=== PATIENT | male | born 1985 | race Caucasian/White ===

== ENCOUNTER 2016-10-19 07:21 | Emergency (ER) | payer SELFPAY ==
[~2016-10-19 07:21] MED LIST: ALBU8.5H3 INH; AZIT250T PO; DICY20TA3 PO; HYDR-79 PO; ONDA4TAB10 PO; PRED20TA PO; SIME80TA14 PO; SULF1TAB24 PO
[2016-10-19] MEDS ORDERED: IV NORMAL SALINE 1,000ML 1,000 ML IV SCH (07:49)
[2016-10-19] MEDS ORDERED: ONDANSETRON PF 4 MG/2 ML VIAL. IV ONE (08:00)
[2016-10-19] MEDS ORDERED: KETOROLAC 30 MG/ML VIAL. IV ONE (08:00)
[2016-10-19 08:13] LABS: BASO % 1 % (0-3); EOS # 0.1 x10^3/uL (0.0-0.7); EOS % 2 % (0-3); HEMATOCRIT 43.6 % (39.0-53.0); HEMOGLOBIN 14.8 g/dL (13.0-17.5); LYMPH # 1.9 x10^3/uL (1.0-4.8); LYMPH % 36 % (24-48); MEAN CORPUSCULAR HEMOGLOBIN 31 pg (25-35); MEAN CORPUSCULAR HGB CONC 34 g/dL (31-37); MEAN CORPUSCULAR VOLUME 92 fL (79-100); MONO # 0.4 x10^3/uL (0.0-1.1); MONO % 8 % (0-9); NEUT # 2.9 x10^3uL (1.8-7.7); NEUT % 54 % (31-73); PLATELET COUNT 211 x10^3/uL (140-400); RED BLOOD COUNT 4.75 x10^6/uL (4.30-5.70); WHITE BLOOD COUNT 5.3 x10^3/uL (4.0-11.0)
[2016-10-19 08:25] LABS: ALBUMIN 4.1 g/dL (3.4-5.0); CALCIUM 9.4 mg/dL (8.5-10.1); CREATININE 1.1 mg/dL (0.7-1.3); GFR 78.6; POTASSIUM 4.5 mmol/L (3.5-5.1); TOTAL BILIRUBIN 0.7 mg/dL (0.2-1.0); TOTAL PROTEIN 8.1 g/dL (6.4-8.2)
--- NOTE | 2016-10-19 09:01 | PHYS DOC ---
General Chief Complaint: ABDOMINAL PAIN Stated Complaint: LEFT UPPER ABD PAIN Time Seen by MD: 07:40 Source: patient Problems: History of Present Illness Initial Comments 30 year old male patient dictated history of chronic pancreatitis states he had severe upper abdominal pain since this morning as a sharp constant pain without radiation. Patient complaining of nausea without vomiting, diarrhea, constipation, urinary symptoms, fever and chills, injury. Patient states he had history of chronic pancreatitis and takes hydrocodone 7.5 mg from pain management clinic. Patient states he had to use his pain medication more than twice a day and planran off the pain medication. Timing/Duration: 1-3 hours Severity: severe Allergies: Coded Allergies: Penicillins (Verified Allergy, Intermediate, 07/01/16) amoxicillin (Verified Allergy, Intermediate, 07/01/16) tramadol (Verified Allergy, Intermediate, 07/01/16) acetaminophen (Verified Allergy, Mild, 07/01/16) Past Medical History Medical History: other Surgical History: noncontributory Review of Systems Constitutional: no symptoms reported EENTM: no symptoms reported Respiratory: no symptoms reported Cardiovascular: no symptoms reported Gastrointestinal: see HPI Genitourinary: no symptoms reported Musculoskeletal: no symptoms reported Skin: no symptoms reported Hematologic/Lymphatic: no symptoms reported Immunological/Allergic: no symptoms reported All Other Systems: Reviewed and Negative Physical Exam General Appearance: WD/WN, mild distress, other (anxious) Eyes: bilateral eye PERRL, bilateral eye normal inspection Ear, Nose, Throat: hearing grossly normal, normal ENT inspection Respiratory: chest non-tender, lungs clear, normal breath sounds Cardiovascular: normal peripheral pulses, regular rate, rhythm, no edema, no gallop Gastrointestinal: normal bowel sounds, non tender, soft, no organomegaly, no pulsatile mass, other (voluntary guarding) Back: normal inspection, no CVA tenderness Extremities: normal range of motion, non-tender Neurologic/Psychiatric: no motor/sensory deficits, alert, normal mood/affect, oriented x 3 Skin: normal color, warm/dry Lymphatic: no adenopathy Orders, Labs, Meds Evaluation of patient in ER showed 30-year-old male patient with history of chronic pancreatitis and use of Freedom complaining of sudden onset of abdominal pain since this morning. Patient had unremarkable physical exam. Patient treated with IV fluid and Zofran and Toradol and stated his pain did not change and rated his pain 10/10 even and he looked comfortable. Patient had 1 dose of Freedom in ER and instructed to follow up with his pain management regarding Rx for Freedom. Departure Departure: Impression: Primary Impression: Chronic abdominal pain Disposition: HOME, SELF-CARE ([id number]) Condition: STABLE Patient Instructions: Abdominal Pain Additional Instructions: Follow-up [facility] primary care physician and pain clinic regarding chronic abdominal pain and long time pain management LUIS BENEDICT MD Oct 19, 2016 09:01
[2016-10-19 09:03] LABS: BACTERIA,URINE 0 /HPF (0-FEW); BILIRUBIN,URINE NEG (NEG); CLARITY,URINE CLEAR; COLOR,URINE YELLOW; GLUCOSE,URINE NEG (NEG); HYALINE CASTS, URINE OCC /HPF; NITRITE,URINE NEG (NEG); SQUAMOUS EPITHELIAL CELL,UR OCC /LPF; UROBILINOGEN,URINE 0.2 mg/dL (0.2 mg/dL); WBC,URINE 0 /HPF (0-4)
[2016-10-19 09:05] LABS: AMPHETAMINE/METHAMPHETAMINE NEG (NEG); BARBITURATES NEG (NEG); BENZODIAZEPINES NEG (NEG); CANNABINOIDS NEG (NEG); COCAINE NEG (NEG); METHADONE NEG (NEG); OPIATES POS (NEG); PHENCYCLIDINE NEG (NEG)
[2016-10-19] MEDS ORDERED: HYDROCODONE/APAP 7.5/325MG TABLET. PO ONE (09:20)
[2016-10-19 09:54] VITALS: BP 137/79
== END 2016-10-19 09:56 | disposition home or self-care (01) ==
LOC: ER 07:21
DX: G89.29 Other chronic pain (principal); R10.10 Upper abdominal pain, unspecified; K86.1 Other chronic pancreatitis; Z88.0 Allergy status to penicillin; Z88.1 Allergy status to other antibiotic agents; Z88.6 Allergy status to analgesic agent
CPT/HCPCS: 36415; 80053; 81001; 83690; 85027; 96361; 96374; 96375; 99284; G0480; G0481; J1885; J2405; J7030

== ENCOUNTER 2016-11-05 20:35 | Emergency (ER) | payer SELFPAY ==
[~2016-11-05] VITALS: Ht 177.8 cm; Wt 79.0 kg
--- NOTE | 2016-11-05 20:40 | ED.ADGEN ---
Past History Past Medical History: IBS, Pancreatitis, Other Past Surgical History: Other Alcohol Use: Sober Drug Use: Marijuana Adult General Chief Complaint Chief Complaint " My pancreatitis is kicking my ass again...".. " They say I partied too much when I was younger..." HPI HPI Patient is a 31 year old male who presents with above hx and complaints of pancreatitis and chronic abdomen pain. Patient was seen previously for the same complaint on October 19, October 03, September 12, and September 03 of this year. Patient follows at [facility]. Patient states he is allergic to all penicillins Tylenol and tramadol. Patient states he cannot take NSAIDs because of stomach upset. Patient denies any intake of alcohol or bad food. Patient denies any trauma. Patient denies any travel. Patient denies any immunosuppression. Patient does have past history of heavy alcohol use. Patient states this is a normal presentation for his pancreatitis exacerbations. Review of Systems Review of Systems Constitutional: Denies fever or chills [] Eyes: Denies change in visual acuity, redness, or eye pain [] HENT: Denies nasal congestion or sore throat [] Respiratory: Denies cough or shortness of breath [] Cardiovascular: No additional information not addressed in HPI [] GI: complaints of epigastric abdominal pain, nausea,. Denies vomiting, bloody stools or diarrhea [] : Denies dysuria or hematuria [] Musculoskeletal: Denies back pain or joint pain [] Integument: Denies rash or skin lesions [] Neurologic: Denies headache, focal weakness or sensory changes [] Endocrine: Denies polyuria or polydipsia [] Family History Family History Noncontributory Current Medications Current Medications Current Medications Medications (Trade) Dose Ordered Sig/Gene Start Time Stop Time Status Last Admin Dose Admin Famotidine (Pepcid) 20 mg 1X ONCE 11/05/16 21:00 11/05/16 21:01 DC 11/05/16 21:52 20 MG Lactated Ringer's (Iv Lactated Ringers) 1,000 ml @ 1,000 mls/hr Q1H 11/05/16 21:00 11/06/16 02:45 DC 11/05/16 21:53 1,000 MLS/HR Magnesium Hydroxide (Milk Of Magnesia) 2,400 mg 1X ONCE 11/05/16 21:00 11/05/16 21:01 DC 11/05/16 21:00 2,400 MG Morphine Sulfate (Morphine 10mg Syringe) 10 mg 1X ONCE 11/05/16 21:00 11/05/16 21:01 DC 11/05/16 21:00 10 MG Ondansetron HCl (Zofran) 8 mg 1X ONCE 11/05/16 21:00 11/05/16 21:01 DC 11/05/16 21:00 8 MG Sucralfate (Carafate) 1 gm 1X ONCE 11/05/16 21:00 11/05/16 21:01 DC 11/05/16 21:00 1 GM Allergies Allergies Allergies Coded Allergies Type Severity Reaction Last Updated Verified Penicillins Allergy Intermediate 07/01/16 Yes amoxicillin Allergy Intermediate 07/01/16 Yes tramadol Allergy Intermediate 07/01/16 Yes acetaminophen Allergy Mild 07/01/16 Yes Physical Exam Physical Exam Constitutional: mild to moderate distress, non-toxic appearance. [] HENT: Normocephalic, atraumatic, bilateral external ears normal, oropharynx moist, no oral exudates, nose normal. [] Eyes: PERRLA, EOMI, conjunctiva normal, no discharge. [] Neck: Normal range of motion, no tenderness, supple, no stridor. [] Cardiovascular:Heart rate regular rhythm, no murmur [] Lungs & Thorax: Bilateral breath sounds equal apex with scattered wheezes on auscultation [] Abdomen: Bowel sounds normal, soft, epigastric tenderness, no masses, no pulsatile masses. Declines rectal exams this time. No true rebound. Skin: Warm, dry, no erythema, no rash. [] Tattoos Back: No tenderness, no CVA tenderness. [] Extremities: No tenderness, no cyanosis, no clubbing, ROM intact, no edema. No psoas or heeltap. Black painted finger nails on Lt. hand. Neurologic: Alert and oriented X 3, normal motor function, normal sensory function, no focal deficits noted. [] Psychologic: Affect normal, judgement normal, mood normal. [] Current Patient Data Vital Signs Vital Signs Date Time Temp Pulse Resp B/P Pulse Ox O2 Delivery O2 Flow Rate FiO2 11/05/16 23:18 82 20 124/53 98 Room Air 11/05/16 20:35 98.2 Lab Results Laboratory Tests Test 11/05/16 21:00 11/05/16 22:00 White Blood Count 6.9x10^3/uL (4.0-11.0) Red Blood Count 4.69x10^6/uL (4.30-5.70) Hemoglobin 14.8g/dL (13.0-17.5) Hematocrit 43.3% (39.0-53.0) Mean Corpuscular Volume 92fL (79-100) Mean Corpuscular Hemoglobin 32pg (25-35) Mean Corpuscular Hemoglobin Concent 34g/dL (31-37) Red Cell Distribution Width 13.3% (11.5-14.5) Platelet Count 240x10^3/uL (140-400) Neutrophils (%) (Auto) 55% (31-73) Lymphocytes (%) (Auto) 35% (24-48) Monocytes (%) (Auto) 8% (0-9) Eosinophils (%) (Auto) 1% (0-3) Basophils (%) (Auto) 1% (0-3) Neutrophils # (Auto) 3.8x10^3uL (1.8-7.7) Lymphocytes # (Auto) 2.4x10^3/uL (1.0-4.8) Monocytes # (Auto) 0.6x10^3/uL (0.0-1.1) Eosinophils # (Auto) 0.1x10^3/uL (0.0-0.7) Basophils # (Auto) 0.1x10^3/uL (0.0-0.2) Prothrombin Time 9.6SEC (9.4-11.4) Prothrombin Time INR 0.9 (0.9-1.1) PTT 27SEC (23-33) Sodium Level 143mmol/L (136-145) Potassium Level 3.8mmol/L (3.5-5.1) Chloride Level 105mmol/L (98-107) Carbon Dioxide Level 27mmol/L (21-32) Anion Gap 11 (6-14) Blood Urea Nitrogen 20mg/dL (8-26) Creatinine 1.3mg/dL (0.7-1.3) Estimated GFR (Cockcroft-Gault) 64.4 Glucose Level 94mg/dL (70-99) Calcium Level 9.0mg/dL (8.5-10.1) Total Bilirubin 0.8mg/dL (0.2-1.0) Direct Bilirubin 0.1mg/dL (0.0-0.2) Aspartate Amino Transferase (AST) 42U/L (15-37) H Alanine Aminotransferase (ALT) 74U/L (16-63) H Alkaline Phosphatase 69U/L (46-116) Troponin I Quantitative < 0.017ng/mL (0-0.055) Total Protein 7.7g/dL (6.4-8.2) Albumin 4.1g/dL (3.4-5.0) Amylase Level 126U/L (25-115) H Lipase 337U/L (73-393) Ethyl Alcohol Level < 10mg/dL (0-10) Urine Collection Type Unknown Urine Color Yellow Urine Clarity Clear Urine pH 7.0 Urine Specific [place] 1.020 Urine Protein Neg (NEG-TRACE) Urine Glucose (UA) Negmg/dL (NEG) Urine Ketones (Stick) Tracemg/dL (NEG) Urine Blood Neg (NEG) Urine Nitrite Neg (NEG) Urine Bilirubin Neg (NEG) Urine Urobilinogen Dipstick 0.2mg/dL (0.2 mg/dL) Urine Leukocyte Esterase Neg (NEG) Urine RBC Occ/HPF (0-2) Urine WBC Occ/HPF (0-4) Urine Squamous Epithelial Cells Occ/LPF Urine Bacteria 0/HPF (0-FEW) Urine Mucus Slight/LPF Urine Opiates Screen Pos (NEG) Urine Methadone Screen Neg (NEG) Urine Barbiturates Neg (NEG) Urine Phencyclidine Screen Neg (NEG) Urine Amphetamine/Methamphetamine Neg (NEG) Urine Benzodiazepines Screen Neg (NEG) Urine Cocaine Screen Neg (NEG) Urine Cannabinoids Screen Neg (NEG) Urine Ethyl Alcohol Neg (NEG) EKG EKG [] Radiology/Procedures Radiology/Procedures My interpretation of acute abdomen shows nonspecific bowel gas pattern , no free air in the diaphragm. [] No acute cardiopulmonary findings Course & Med Decision Making Course & Med Decision Making Pertinent Labs and Imaging studies reviewed. (See chart for details). Patient to remain on a clear fluid diet only. No solids or milk products for the next 48 hours. Patient to take Zantac 150 mg twice day for 30 days. Patient to take Carafate 1 g up to 4 times a day. Patient to follow-up primary care for narcotic renewals. Must follow-up primary care review all labs completed in the emergency department. [] Final Impression Final Impression 1. Abdomen Pain[]- Hx of Chronic Pancreatitis 2. Elevated AST and ALTs 3. Elevated amylase-chronic Problems: Dragon Disclaimer Dragon Disclaimer This electronic medical record was generated, in whole or in part, using a voice recognition dictation system. JUSTINA ZAPATA MD Nov 05, 2016 20:40
[2016-11-05] MEDS ORDERED: MORPHINE SULFATE 10 MG/ML SYRINGE. SQ ONE (21:00)
[2016-11-05] MEDS ORDERED: MAGNESIUM HYDROXIDE 2,400 MG/30 ML ORAL.SUSP. PO ONE (21:00)
[2016-11-05] MEDS ORDERED: FAMOTIDINE 20 MG/2 ML VIAL IVP ONE (21:00)
[2016-11-05] MEDS ORDERED: ONDANSETRON PF 4 MG/2 ML VIAL. IV ONE (21:00)
[2016-11-05] MEDS ORDERED: IV RINGERS SOLUTION,LACTATED 1,000 ML IV SCH (21:00)
[2016-11-05] MEDS ORDERED: SUCRALFATE 1 GM TABLET. PO ONE (21:00)
[2016-11-05 21:27] LABS: BASO # 0.1 x10^3/uL (0.0-0.2); BASO % 1 % (0-3); EOS # 0.1 x10^3/uL (0.0-0.7); EOS % 1 % (0-3); HEMATOCRIT 43.3 % (39.0-53.0); HEMOGLOBIN 14.8 g/dL (13.0-17.5); LYMPH # 2.4 x10^3/uL (1.0-4.8); LYMPH % 35 % (24-48); MEAN CORPUSCULAR HEMOGLOBIN 32 pg (25-35); MEAN CORPUSCULAR HGB CONC 34 g/dL (31-37); MEAN CORPUSCULAR VOLUME 92 fL (79-100); MONO # 0.6 x10^3/uL (0.0-1.1); MONO % 8 % (0-9); NEUT # 3.8 x10^3uL (1.8-7.7); NEUT % 55 % (31-73); PLATELET COUNT 240 x10^3/uL (140-400); RED BLOOD COUNT 4.69 x10^6/uL (4.30-5.70); RED CELL DISTRIBUTION WIDTH 13.3 % (11.5-14.5); WHITE BLOOD COUNT 6.9 x10^3/uL (4.0-11.0)
[2016-11-05 21:39] LABS: ALBUMIN 4.1 g/dL (3.4-5.0); CREATININE 1.3 mg/dL (0.7-1.3); DIRECT BILIRUBIN 0.1 mg/dL (0.0-0.2); GFR 64.4; POTASSIUM 3.8 mmol/L (3.5-5.1); TOTAL BILIRUBIN 0.8 mg/dL (0.2-1.0); TOTAL PROTEIN 7.7 g/dL (6.4-8.2)
[2016-11-05 22:20] LABS: AMPHETAMINE/METHAMPHETAMINE NEG (NEG); BARBITURATES NEG (NEG); BENZODIAZEPINES NEG (NEG); CANNABINOIDS NEG (NEG); COCAINE NEG (NEG); METHADONE NEG (NEG); OPIATES POS (NEG); PHENCYCLIDINE NEG (NEG)
[2016-11-05 22:23] LABS: BACTERIA,URINE 0 /HPF (0-FEW); BILIRUBIN,URINE NEG (NEG); CLARITY,URINE CLEAR; COLOR,URINE YELLOW; GLUCOSE,URINE NEG (NEG); NITRITE,URINE NEG (NEG); RBC,URINE OCC /HPF (0-2); SQUAMOUS EPITHELIAL CELL,UR OCC /LPF; UROBILINOGEN,URINE 0.2 mg/dL (0.2 mg/dL); WBC,URINE OCC /HPF (0-4)
[2016-11-05] MEDS ORDERED: SUCR1ORA2 PO (22:57)
[2016-11-05] MEDS ORDERED: RANI150T6 PO (22:57)
[2016-11-05 23:18] VITALS: BP 124/53
--- NOTE | 2016-11-06 08:21 | RAD ---
Acute abdomen series with chest, 3 views, 11/05/2016: History: Upper abdominal pain with nausea, pancreatitis Gas is present in large and small bowel without significant bowel distention. There are multiple small scattered air-fluid levels. No free air seen in the abdomen. There is no evidence of organomegaly or abnormal abdominal calcification. The heart size is normal. The lungs are clear. There is no evidence of pleural fluid. IMPRESSION: Scattered small air-fluid levels in the GI tract suggests a mild ileus.
== END 2016-11-05 23:33 | disposition home or self-care (01) ==
LOC: ER 20:35
DX: G89.29 Other chronic pain (principal); R10.13 Epigastric pain; K58.9 Irritable bowel syndrome, unspecified; R94.5 Abnormal results of liver function studies; R74.0 Nonspecific elevation of levels of transaminase and lactic acid dehydrogenase [LDH]; R74.8 Abnormal levels of other serum enzymes; F12.10 Cannabis abuse, uncomplicated; Z88.0 Allergy status to penicillin; Z88.6 Allergy status to analgesic agent
CPT/HCPCS: 36415; 74022; 80048; 80076; 80305; 80320; 81001; 82150; 83690; 84484; 85027; 85610; 85730; 96361; 96372; 96374; 96375; 99285; J2270; J2405; J7120; S0028; G0480; G0481

== ENCOUNTER 2016-11-14 19:09 | Emergency (ER) | payer SELFPAY ==
[~2016-11-14] VITALS: Ht 177.8 cm; Wt 77.1 kg
[~2016-11-14 19:09] MED LIST changes: +RANI150T6 PO; +SUCR1ORA2 PO
--- NOTE | 2016-11-14 19:48 | ED.ADGEN ---
Past History Past Medical History: IBS, Pancreatitis, Other Past Surgical History: Other Alcohol Use: None Drug Use: None Adult General Chief Complaint Chief Complaint '.. I having another pancreatitis flare up..." [facility] HPI Patient is a 31 year old male who presents with epigastric pain consistent with his pancreatitis. Pt. has hx of recurrent epigastric and pancreatitis. Pt. denies intake of alcohol for past [address] Harper. Pt. history of alcohol abuse the past. Pt. denies any bad food. Patient denies any travel. Patient denies any trauma. Pain is localized in the epigastric area. Review of Systems Review of Systems Constitutional: Denies fever or chills [] Eyes: Denies change in visual acuity, redness, or eye pain [] HENT: Denies nasal congestion or sore throat [] Respiratory: Denies cough or shortness of breath [] Cardiovascular: No additional information not addressed in HPI [] GI: Complaints of epigastric abdominal pain, nausea, . Denies vomiting, bloody stools or diarrhea [] : Denies dysuria or hematuria [] Musculoskeletal: Denies back pain or joint pain [] Integument: Denies rash or skin lesions [] Neurologic: Denies headache, focal weakness or sensory changes [] Endocrine: Denies polyuria or polydipsia [] Family History Family History Noncontributory Current Medications Current Medications Current Medications Medications (Trade) Dose Ordered Sig/[facility] Start Time Stop Time Status Last Admin Dose Admin Famotidine (Pepcid) 20 mg 1X ONCE 11/14/16 20:15 11/14/16 20:16 DC 11/14/16 20:33 20 MG Magnesium Hydroxide (Milk Of Magnesia) 2,400 mg 1X ONCE 11/14/16 20:15 11/14/16 20:16 DC 11/14/16 20:28 2,400 MG Morphine Sulfate (Morphine 10mg Syringe) 10 mg 1X ONCE 11/14/16 20:15 11/14/16 20:16 DC 11/14/16 20:38 10 MG Ondansetron HCl (Zofran) 8 mg 1X ONCE 11/14/16 20:15 11/14/16 20:16 DC 11/14/16 20:31 8 MG Sucralfate (Carafate) 1 gm 1X ONCE 11/14/16 20:15 11/14/16 20:16 DC 11/14/16 20:29 1 GM See nursing for home meds Allergies Allergies Allergies Coded Allergies Type Severity Reaction Last Updated Verified Penicillins Allergy Intermediate 07/01/16 Yes amoxicillin Allergy Intermediate 07/01/16 Yes tramadol Allergy Intermediate 07/01/16 Yes acetaminophen Allergy Mild 07/01/16 Yes clavulanic acid Allergy Unknown 11/14/16 Yes Physical Exam Physical Exam Constitutional: Well developed, well nourished, no acute distress, non-toxic appearance. [] HENT: Normocephalic, atraumatic, bilateral external ears normal, oropharynx moist, no oral exudates, nose normal. [] Eyes: PERRLA, EOMI, conjunctiva normal, no discharge. [] Neck: Normal range of motion, no tenderness, supple, no stridor. [] Cardiovascular:Heart rate regular rhythm, no murmur [] Lungs & Thorax: Bilateral breath sounds equal at apexes with few scattered wheezes auscultation [] Abdomen: Bowel sounds normal, soft, no gastric tenderness, no masses, no pulsatile masses. [Declines rectal exam at this time. Skin: Warm, dry, no erythema, no rash. [] Back: No tenderness, no CVA tenderness. [] Extremities: No tenderness, no cyanosis, no clubbing, ROM intact, no edema. [] Neurologic: Alert and oriented X 3, normal motor function, normal sensory function, no focal deficits noted. [] Psychologic: Affect anxious, judgement normal, mood normal. [] Current Patient Data Vital Signs Vital Signs Date Time Temp Pulse Resp B/P Pulse Ox O2 Delivery O2 Flow Rate FiO2 11/14/16 21:55 76 12 151/77 97 11/14/16 19:45 98.0 Room Air Lab Results Laboratory Tests Test 11/14/16 20:20 White Blood Count 9.8x10^3/uL (4.0-11.0) Red Blood Count 4.54x10^6/uL (4.30-5.70) Hemoglobin 14.1g/dL (13.0-17.5) Hematocrit 42.4% (39.0-53.0) Mean Corpuscular Volume 93fL (79-100) Mean Corpuscular Hemoglobin 31pg (25-35) Mean Corpuscular Hemoglobin Concent 33g/dL (31-37) Red Cell Distribution Width 13.5% (11.5-14.5) Platelet Count 265x10^3/uL (140-400) Neutrophils (%) (Auto) 56% (31-73) Lymphocytes (%) (Auto) 34% (24-48) Monocytes (%) (Auto) 8% (0-9) Eosinophils (%) (Auto) 1% (0-3) Basophils (%) (Auto) 1% (0-3) Neutrophils # (Auto) 5.5x10^3uL (1.8-7.7) Lymphocytes # (Auto) 3.3x10^3/uL (1.0-4.8) Monocytes # (Auto) 0.8x10^3/uL (0.0-1.1) Eosinophils # (Auto) 0.1x10^3/uL (0.0-0.7) Basophils # (Auto) 0.1x10^3/uL (0.0-0.2) Prothrombin Time 9.7SEC (9.4-11.4) Prothrombin Time INR 0.9 (0.9-1.1) PTT 26SEC (23-33) Urine Collection Type Unknown Urine Color Yellow Urine Clarity Clear Urine pH 7.0 Urine Specific [place] 1.015 Urine Protein Neg (NEG-TRACE) Urine Glucose (UA) Negmg/dL (NEG) Urine Ketones (Stick) Negmg/dL (NEG) Urine Blood Neg (NEG) Urine Nitrite Neg (NEG) Urine Bilirubin Neg (NEG) Urine Urobilinogen Dipstick 0.2mg/dL (0.2 mg/dL) Urine Leukocyte Esterase Neg (NEG) Urine RBC 0/HPF (0-2) Urine WBC Occ/HPF (0-4) Urine Squamous Epithelial Cells Occ/LPF Urine Bacteria 0/HPF (0-FEW) Sodium Level 145mmol/L (136-145) Potassium Level 3.7mmol/L (3.5-5.1) Chloride Level 106mmol/L (98-107) Carbon Dioxide Level 26mmol/L (21-32) Anion Gap 13 (6-14) Blood Urea Nitrogen 18mg/dL (8-26) Creatinine 1.2mg/dL (0.7-1.3) Estimated GFR (Cockcroft-Gault) 70.6 Glucose Level 75mg/dL (70-99) Calcium Level 9.3mg/dL (8.5-10.1) Total Bilirubin 0.6mg/dL (0.2-1.0) Direct Bilirubin 0.1mg/dL (0.0-0.2) Aspartate Amino Transferase (AST) 11U/L (15-37) L Alanine Aminotransferase (ALT) 38U/L (16-63) Alkaline Phosphatase 75U/L (46-116) Creatine Kinase 72U/L (39-308) Creatine Kinase MB (Mass) < 0.5ng/mL (0.0-3.6) Creatine Kinase MB Relative Index 0.7% (0-4) Troponin I Quantitative < 0.017ng/mL (0-0.055) Total Protein 8.1g/dL (6.4-8.2) Albumin 4.2g/dL (3.4-5.0) Lipase 193U/L (73-393) Urine Opiates Screen Neg (NEG) Urine Methadone Screen Neg (NEG) Urine Barbiturates Neg (NEG) Urine Phencyclidine Screen Neg (NEG) Urine Amphetamine/Methamphetamine Neg (NEG) Urine Benzodiazepines Screen Neg (NEG) Urine Cocaine Screen Neg (NEG) Urine Cannabinoids Screen Neg (NEG) Urine Ethyl Alcohol Neg (NEG) EKG EKG [] Radiology/Procedures Radiology/Procedures Interpretation x-ray shows no close. No acute cardiopulmonary findings. No free air under the diaphragm. No specific bowel gas pattern. [] Course & Med Decision Making Course & Med Decision Making Pertinent Labs and Imaging studies reviewed. (See chart for details). A on a clear fluid diet only for 48 hours. No solids. No milk products. Take Zantac and 50 mg twice a day. May take Carafate 1 g 4 times a day. He is to follow-up primary care. Return emergent changes. [] Take Zofran 8 mg up 4 times a day for nausea and vomiting. Pt. to stop smoking. Final Impression Final Impression 1. Abdomen Pain- Pancreatitis[] 2. Chronic Abd. Pain Problems: Dragon Disclaimer Dragon Disclaimer This electronic medical record was generated, in whole or in part, using a voice recognition dictation system. JUSTINA ZAPATA MD Nov 14, 2016 19:48
[2016-11-14] MEDS: MAGNESIUM HYDROXIDE 2,400 MG/30 ML ORAL.SUSP. PO ONE (20:28)
[2016-11-14] MEDS: SUCRALFATE 1 GM TABLET. PO ONE (20:29)
[2016-11-14] MEDS: ONDANSETRON PF 4 MG/2 ML VIAL. IV ONE (20:31)
[2016-11-14] MEDS: FAMOTIDINE 20 MG/2 ML VIAL IVP ONE (20:33)
[2016-11-14 20:35] LABS: BASO # 0.1 x10^3/uL (0.0-0.2); BASO % 1 % (0-3); EOS # 0.1 x10^3/uL (0.0-0.7); EOS % 1 % (0-3); HEMATOCRIT 42.4 % (39.0-53.0); HEMOGLOBIN 14.1 g/dL (13.0-17.5); LYMPH # 3.3 x10^3/uL (1.0-4.8); LYMPH % 34 % (24-48); MEAN CORPUSCULAR HEMOGLOBIN 31 pg (25-35); MEAN CORPUSCULAR HGB CONC 33 g/dL (31-37); MEAN CORPUSCULAR VOLUME 93 fL (79-100); MONO # 0.8 x10^3/uL (0.0-1.1); MONO % 8 % (0-9); NEUT # 5.5 x10^3uL (1.8-7.7); NEUT % 56 % (31-73); PLATELET COUNT 265 x10^3/uL (140-400); RED BLOOD COUNT 4.54 x10^6/uL (4.30-5.70); RED CELL DISTRIBUTION WIDTH 13.5 % (11.5-14.5); WHITE BLOOD COUNT 9.8 x10^3/uL (4.0-11.0)
[2016-11-14] MEDS: MORPHINE SULFATE 10 MG/ML SYRINGE. SQ ONE (20:38)
[2016-11-14 20:40] LABS: BARBITURATES NEG (NEG); BENZODIAZEPINES NEG (NEG); CANNABINOIDS NEG (NEG); COCAINE NEG (NEG); METHADONE NEG (NEG); OPIATES NEG (NEG); PHENCYCLIDINE NEG (NEG)
[2016-11-14 20:41] LABS: AMPHETAMINE/METHAMPHETAMINE NEG (NEG)
[2016-11-14 20:42] LABS: BACTERIA,URINE 0 /HPF (0-FEW); BILIRUBIN,URINE NEG (NEG); CLARITY,URINE CLEAR; COLOR,URINE YELLOW; GLUCOSE,URINE NEG (NEG); NITRITE,URINE NEG (NEG); RBC,URINE 0 /HPF (0-2); SQUAMOUS EPITHELIAL CELL,UR OCC /LPF; UROBILINOGEN,URINE 0.2 mg/dL (0.2 mg/dL); WBC,URINE OCC /HPF (0-4)
[2016-11-14 20:57] LABS: ALBUMIN 4.2 g/dL (3.4-5.0); ALK PHOS 75 U/L (46-116); ALT (SGPT) 38 U/L (16-63); ANION GAP 13 (6-14); AST (SGOT) 11 U/L (15-37); BLOOD UREA NITROGEN 18 mg/dL (8-26); CALCIUM 9.3 mg/dL (8.5-10.1); CARBON DIOXIDE 26 mmol/L (21-32); CHLORIDE 106 mmol/L (98-107); CREATINE KINASE 72 U/L (39-308); CREATININE 1.2 mg/dL (0.7-1.3); DIRECT BILIRUBIN 0.1 mg/dL (0.0-0.2); GFR 70.6; GLUCOSE 75 mg/dL (70-99); LIPASE 193 U/L (73-393); POTASSIUM 3.7 mmol/L (3.5-5.1); SODIUM 145 mmol/L (136-145); TOTAL BILIRUBIN 0.6 mg/dL (0.2-1.0); TOTAL PROTEIN 8.1 g/dL (6.4-8.2)
[2016-11-14] MEDS ORDERED: ONDA8TAB12 PO (21:44)
[2016-11-14] MEDS ORDERED: SUCR1ORA2 PO (21:44)
[2016-11-14 21:55] VITALS: BP 151/77
--- NOTE | 2016-11-15 08:53 | RAD ---
Acute abdomen series with chest, 3 views, 11/14/2016: History: Upper abdominal pain and nausea The abdominal gas pattern is unremarkable. No free air is seen in the abdomen. There is no evidence of organomegaly or abnormal abdominal calcifications. The heart size is normal. The lungs are clear. There is no evidence of pleural fluid. IMPRESSION: No acute abdominal abnormality is detected.
== END 2016-11-14 21:58 | disposition home or self-care (01) ==
LOC: ER 19:15
DX: K85.90 Acute pancreatitis without necrosis or infection, unspecified (principal); G89.29 Other chronic pain; K58.9 Irritable bowel syndrome, unspecified; Z88.1 Allergy status to other antibiotic agents; Z88.6 Allergy status to analgesic agent; Z88.0 Allergy status to penicillin
CPT/HCPCS: 36415; 74022; 80048; 80076; 80305; 81001; 82553; 83690; 84484; 85027; 85610; 85730; 96372; 96374; 96375; 99285; J2270; J2405; S0028; G0481

== ENCOUNTER 2016-12-16 19:42 | Emergency (ER) | payer SELFPAY ==
[~2016-12-16] VITALS: Ht 177.8 cm; Wt 79.0 kg
[~2016-12-16 19:42] MED LIST changes: -ALBU8.5H3 INH; +ALBU8.5H8 INH; +ONDA8TAB12 PO; -SUCR1ORA2 PO; +SUCR1ORA5 PO
[2016-12-16] MEDS ORDERED: fentaNYL PF 100 MCG/2 ML VIAL IV ONE ×2 (20:00→21:30)
[2016-12-16] MEDS ORDERED: IV NORMAL SALINE 1,000ML 1,000 ML IV ONE (20:00)
[2016-12-16] MEDS ORDERED: ONDANSETRON PF 4 MG/2 ML VIAL. IV ONE (20:00)
[2016-12-16 20:27] LABS: BASO # 0.1 x10^3/uL (0.0-0.2); BASO % 1 % (0-3); EOS # 0.1 x10^3/uL (0.0-0.7); EOS % 2 % (0-3); HEMATOCRIT 42.3 % (39.0-53.0); HEMOGLOBIN 14.8 g/dL (13.0-17.5); LYMPH # 3.2 x10^3/uL (1.0-4.8); LYMPH % 46 % (24-48); MEAN CORPUSCULAR HEMOGLOBIN 32 pg (25-35); MEAN CORPUSCULAR HGB CONC 35 g/dL (31-37); MEAN CORPUSCULAR VOLUME 92 fL (79-100); MONO # 0.5 x10^3/uL (0.0-1.1); MONO % 8 % (0-9); NEUT % 43 % (31-73); PLATELET COUNT 254 x10^3/uL (140-400); RED CELL DISTRIBUTION WIDTH 13.2 % (11.5-14.5)
[2016-12-16 20:48] LABS: ALBUMIN/GLOBULIN RATIO 0.9 (1.0-1.7); CALCIUM 8.6 mg/dL (8.5-10.1); CREATININE 1.1 mg/dL (0.7-1.3); GFR 78.1; TOTAL BILIRUBIN 0.7 mg/dL (0.2-1.0); TOTAL PROTEIN 8.5 g/dL (6.4-8.2)
[2016-12-16 21:10] LABS: POTASSIUM 3.9 mmol/L (3.5-5.1)
[2016-12-16 21:49] LABS: BACTERIA,URINE 0 /HPF (0-FEW); BILIRUBIN,URINE NEG (NEG); CLARITY,URINE CLEAR; COLOR,URINE YELLOW; GLUCOSE,URINE NEG (NEG); NITRITE,URINE NEG (NEG); RBC,URINE 0 /HPF (0-2); SQUAMOUS EPITHELIAL CELL,UR OCC /LPF; UROBILINOGEN,URINE 0.2 mg/dL (0.2 mg/dL); WBC,URINE OCC /HPF (0-4)
[2016-12-16 22:21] VITALS: BP 165/89
--- NOTE | 2016-12-16 22:52 | PHYS DOC ---
Past History Past Medical History: IBS, Pancreatitis Past Surgical History: Other Alcohol Use: Sober Drug Use: None Social History Narrative: Home with family Adult General Chief Complaint Chief Complaint: ABDOMINAL PAIN HPI HPI Patient is a 31-year-old gentleman who presents here today complaining of pain in his pancreatitis area. Patient reports he the pancreas in the past and this feels identical to it. Patient reports that morphine usually does not assist him and he is requesting that we give him fentanyl. Patient denies any recent alcohol use. Patient reports that he's been alcohol free for over a year. Patient reports that he with a heavy drinker ever since she was 10 years old and never experienced pancreatitis until much later in his life after he stopped drinking alcohol. Patient denies any fevers shakes chills. Patient has had nausea. Patient has had vomiting. No diarrhea. No cough cold or runny nose. No dysuria frequency or urgency. No blood in his stool or melena. Patient's physical exam is significant for tenderness to palpation his midepigastric area. Patient has normal active bowel sounds. Patient has no rebound or guarding. Patient does not present with any signs or symptoms of be consistent with an acute surgical abdomen. Patient's labs were all within normal limits. Patient had a Normal lipase. Patient blood was called from the lab secondary to it being extremely lipemic. Patient denies any history significant for high cholesterol or hypertriglyceridemia in the past. A triglyceride level was ordered for the patient however we will not be able to obtain results until tomorrow afternoon per the laboratory. While in the ER the patient received fentanyl 50 mg IV with minimal relief. Patient was given another dose of fentanyl 100 mics IV and we will reassess him. The option for admission versus discharge was discussed with the patient is currently requesting to be admitted for further pain management. Assessment and plan #1 abdominal pain: Most likely secondary to pancreatitis. Although a CT scan was initially ordered upon further review patient has had a CT scan approximal 4 days ago which was normal. CT is normal last couple months I feel it would be prudent to avoid any further radiation at this time and I don't think the utility or his management will change with the results. I do not have a high suspicion for an acute surgical abdomen so I feel it be warranted to hold off on aggressive radiation at this time. Patient will be transferred to [facility] for admission for pain management hydration and further evaluation for the cause of his pancreatitis. Review of Systems Review of Systems Constitutional: Denies fever or chills [] Eyes: Denies change in visual acuity, redness, or eye pain [] HENT: Denies nasal congestion or sore throat [] All other review systems are negative except as documented in the history of present illness portion. Current Medications Current Medications Current Medications Medications (Trade) Dose Ordered Sig/Gene Start Time Stop Time Status Last Admin Dose Admin Fentanyl Citrate (Fentanyl 2ml Vial) 100 mcg 1X ONCE 12/16/16 21:30 12/16/16 21:31 DC 12/16/16 21:30 100 MCG Ondansetron HCl (Zofran) 4 mg 1X ONCE 12/16/16 20:00 12/16/16 20:01 DC 12/16/16 20:00 4 MG Sodium Chloride 1,000 ml @ 1,000 mls/hr 1X ONCE 12/16/16 20:00 12/16/16 20:59 DC 12/16/16 20:00 1,000 MLS/HR Allergies Allergies Allergies Coded Allergies Type Severity Reaction Last Updated Verified Penicillins Allergy Intermediate 07/01/16 Yes amoxicillin Allergy Intermediate 07/01/16 Yes tramadol Allergy Intermediate 07/01/16 Yes acetaminophen Allergy Mild 07/01/16 Yes clavulanic acid Allergy Unknown 11/14/16 Yes Physical Exam Physical Exam Constitutional: Well developed, well nourished, no acute distress, non-toxic appearance. [] HENT: Normocephalic, atraumatic, bilateral external ears normal, oropharynx moist, no oral exudates, nose normal. [] Eyes: PERRLA, EOMI, conjunctiva normal, no discharge. [] Neck: Normal range of motion, no tenderness, supple, no stridor. [] Cardiovascular:Heart rate regular rhythm, no murmur [] Lungs & Thorax: Bilateral breath sounds clear to auscultation [] Abdomen: See above. Skin: Warm, dry, no erythema, no rash. [] Back: No tenderness, no CVA tenderness. [] Extremities: No tenderness, no cyanosis, no clubbing, ROM intact, no edema. [] Neurologic: Alert and oriented X 3, normal motor function, normal sensory function, no focal deficits noted. [] Psychologic: Affect normal, judgement normal, mood normal. [] Current Patient Data Vital Signs Vital Signs Date Time Temp Pulse Resp B/P (MAP) Pulse Ox O2 Delivery O2 Flow Rate FiO2 12/16/16 19:53 98.3 72 147/87 (107) 99 12/16/16 19:53 14 Room Air Lab Results Laboratory Tests Test 12/16/16 20:00 12/16/16 21:10 White Blood Count 7.0 x10^3/uL (4.0-11.0) Red Blood Count 4.60 x10^6/uL (4.30-5.70) Hemoglobin 14.8 g/dL (13.0-17.5) Hematocrit 42.3 % (39.0-53.0) Mean Corpuscular Volume 92 fL (79-100) Mean Corpuscular Hemoglobin 32 pg (25-35) Mean Corpuscular Hemoglobin Concent 35 g/dL (31-37) Red Cell Distribution Width 13.2 % (11.5-14.5) Platelet Count 254 x10^3/uL (140-400) Neutrophils (%) (Auto) 43 % (31-73) Lymphocytes (%) (Auto) 46 % (24-48) Monocytes (%) (Auto) 8 % (0-9) Eosinophils (%) (Auto) 2 % (0-3) Basophils (%) (Auto) 1 % (0-3) Neutrophils # (Auto) 3.0 x10^3uL (1.8-7.7) Lymphocytes # (Auto) 3.2 x10^3/uL (1.0-4.8) Monocytes # (Auto) 0.5 x10^3/uL (0.0-1.1) Eosinophils # (Auto) 0.1 x10^3/uL (0.0-0.7) Basophils # (Auto) 0.1 x10^3/uL (0.0-0.2) Sodium Level 141 mmol/L (136-145) Potassium Level 3.9 mmol/L (3.5-5.1) Chloride Level 104 mmol/L (98-107) Carbon Dioxide Level 27 mmol/L (21-32) Anion Gap 10 (6-14) Blood Urea Nitrogen 14 mg/dL (8-26) Creatinine 1.1 mg/dL (0.7-1.3) Estimated GFR (Cockcroft-Gault) 78.1 BUN/Creatinine Ratio 13 (6-20) Glucose Level 102 mg/dL (70-99) H Calcium Level 8.6 mg/dL (8.5-10.1) Total Bilirubin 0.7 mg/dL (0.2-1.0) Aspartate Amino Transferase (AST) 20 U/L (15-37) Alanine Aminotransferase (ALT) 26 U/L (16-63) Alkaline Phosphatase 71 U/L (46-116) Total Protein 8.5 g/dL (6.4-8.2) H Albumin 4.0 g/dL (3.4-5.0) Albumin/Globulin Ratio 0.9 (1.0-1.7) L Lipase 357 U/L (73-393) Urine Collection Type Unknown Urine Color Yellow Urine Clarity Clear Urine pH 7.0 Urine Specific [place] 1.015 Urine Protein Neg (NEG-TRACE) Urine Glucose (UA) Neg mg/dL (NEG) Urine Ketones (Stick) Neg mg/dL (NEG) Urine Blood Neg (NEG) Urine Nitrite Neg (NEG) Urine Bilirubin Neg (NEG) Urine Urobilinogen Dipstick 0.2 mg/dL (0.2 mg/dL) Urine Leukocyte Esterase Neg (NEG) Urine RBC 0 /HPF (0-2) Urine WBC Occ /HPF (0-4) Urine Squamous Epithelial Cells Occ /LPF Urine Bacteria 0 /HPF (0-FEW) Urine Mucus Slight /LPF EKG EKG [] Radiology/Procedures Radiology/Procedures [] Course & Med Decision Making Course & Med Decision Making Pertinent Labs and Imaging studies reviewed. (See chart for details) [] Dragon Disclaimer Dragon Disclaimer This chart was dictated in whole or in part using Voice Recognition software in a busy, high-work load, and often noisy Emergency Department environment. It may contain unintended and wholly unrecognized errors or omissions. Departure Departure: Impression: Primary Impression: Pancreatitis Additional Impression: Hyperlipidemia Disposition: OTHER (transferred to [facility] for admission under Dr. Pacheco) Admitting Physician: Other (Dr. Pacheco) Condition: IMPROVED Referrals: SHARMIN JOSHUA MD (PCP) Problem Qualifiers Primary Impression: Pancreatitis Chronicity: acute Pancreatitis type: unspecified pancreatitis type Acute pancreatitis complication: unspecified Qualified Codes: K85.90 - Acute pancreatitis without necrosis or infection, unspecified KRISSY MRECER MD December 16, 2016 22:52
[2016-12-16] MEDS ORDERED: KETOROLAC 30 MG/ML VIAL. ONE (23:59)
[2016-12-16] MEDS ORDERED: HYDROmorphone PF 1 MG/ML DISP.SYRIN ONE (23:59)
[2016-12-17] MEDS ORDERED: HYDROmorphone PF 1 MG/ML DISP.SYRIN IV ONE (00:30)
[2016-12-17] MEDS ORDERED: ONDANSETRON PF 4 MG/2 ML VIAL. IV ONE (00:30)
[2016-12-17] MEDS ORDERED: KETOROLAC 30 MG/ML VIAL. IV ONE (00:30)
== END 2016-12-17 00:21 | disposition short-term general hospital (02) ==
LOC: ER 19:42
DX: K85.90 Acute pancreatitis without necrosis or infection, unspecified (principal); E78.5 Hyperlipidemia, unspecified; K58.9 Irritable bowel syndrome, unspecified; Z88.0 Allergy status to penicillin; Z88.1 Allergy status to other antibiotic agents; Z88.6 Allergy status to analgesic agent
CPT/HCPCS: 36415; 80053; 81001; 83690; 84478; 85027; 96361; 96374; 96375; 96376; 99285; J1170; J1885; J2405; J3010; J7030

== ENCOUNTER 2017-01-10 11:21 | Inpatient (IN) | payer SELFPAY ==
[~2017-01-10] VITALS: Ht 177.8 cm; Wt 77.4 kg
[2017-01-10] MEDS ORDERED: IV NORMAL SALINE 1,000ML 1,000 ML IV SCH ×2 (11:42→12:38)
[2017-01-10] MEDS ORDERED: fentaNYL PF 100 MCG/2 ML VIAL ONE (11:56)
[2017-01-10] MEDS ORDERED: IV NORMAL SALINE 1,000ML 1,000 ML ONE (11:56)
[2017-01-10] MEDS ORDERED: IOHEXOL 300 MG/ML 75 ML VIAL. IV ONE ×2 (12:00)
[2017-01-10 12:05] LABS: BASO # 0.1 x10^3/uL (0.0-0.2); BASO % 1 % (0-3); EOS # 0.3 x10^3/uL (0.0-0.7); EOS % 4 % (0-3); HEMATOCRIT 40.6 % (39.0-53.0); HEMOGLOBIN 14.2 g/dL (13.0-17.5); LYMPH # 3.8 x10^3/uL (1.0-4.8); LYMPH % 43 % (24-48); MEAN CORPUSCULAR HEMOGLOBIN 32 pg (25-35); MEAN CORPUSCULAR HGB CONC 35 g/dL (31-37); MEAN CORPUSCULAR VOLUME 91 fL (79-100); MONO # 0.6 x10^3/uL (0.0-1.1); MONO % 7 % (0-9); NEUT % 45 % (31-73); PLATELET COUNT 248 x10^3/uL (140-400); RED BLOOD COUNT 4.49 x10^6/uL (4.30-5.70); RED CELL DISTRIBUTION WIDTH 12.5 % (11.5-14.5); WHITE BLOOD COUNT 8.7 x10^3/uL (4.0-11.0)
[2017-01-10] MEDS ORDERED: ONDANSETRON PF 4 MG/2 ML VIAL. IV ONE (12:15)
[2017-01-10] MEDS ORDERED: fentaNYL PF 100 MCG/2 ML VIAL IV ONE ×2 (12:15→13:00)
[2017-01-10 12:16] LABS: ALBUMIN 4.1 g/dL (3.4-5.0); ALBUMIN/GLOBULIN RATIO 1.1 (1.0-1.7); CALCIUM 8.9 mg/dL (8.5-10.1); CREATININE 1.2 mg/dL (0.7-1.3); DIRECT BILIRUBIN 0.1 mg/dL (0.0-0.2); GFR 70.6; POTASSIUM 3.9 mmol/L (3.5-5.1); TOTAL BILIRUBIN 0.4 mg/dL (0.2-1.0); TOTAL PROTEIN 7.9 g/dL (6.4-8.2)
--- NOTE | 2017-01-10 12:16 | PHYS DOC ---
Past History Past Medical History: IBS, Pancreatitis Past Surgical History: Other Alcohol Use: None Drug Use: None Adult General Chief Complaint Chief Complaint: ABDOMINAL PAIN HPI HPI This 31-year-old gentleman presents with suprapubic abdominal pain. He states that at 2:30 AM while urinating he developed pain in the suprapubic area that was severe. He denies hematuria and denies dysuria. He states the pain is in the suprapubic area and it still hurts a little there but he has pain in his epigastrium as well. He states that he does have a history of pancreatitis. He denies painful bowel movements denies fever or chills has had some nausea without vomiting denies diarrhea. Review of Systems Review of Systems Constitutional: Denies fever or chills [] Eyes: Denies change in visual acuity, redness, or eye pain [] HENT: Denies nasal congestion or sore throat [] Respiratory: Denies cough or shortness of breath [] Cardiovascular: No additional information not addressed in HPI [] GI: Denies vomiting, bloody stools or diarrhea [] : Denies dysuria or hematuria [] Musculoskeletal: Denies back pain or joint pain [] Integument: Denies rash or skin lesions [] Neurologic: Denies headache, focal weakness or sensory changes [] Endocrine: Denies polyuria or polydipsia [] Current Medications Current Medications Current Medications Medications (Trade) Dose Ordered Sig/Gene Start Time Stop Time Status Last Admin Dose Admin Fentanyl Citrate (Fentanyl 2ml Vial) 100 mcg STK-MED ONCE 01/10/17 11:56 01/10/17 11:57 DC Iohexol (Omnipaque 300 Mg/ml) 75 ml 1X ONCE 01/10/17 12:00 01/10/17 12:01 DC Ondansetron HCl (Zofran) 4 mg 1X ONCE 01/10/17 12:15 01/10/17 12:16 01/10/17 12:01 4 MG Sodium Chloride 1,000 ml @ As Directed STK-MED ONCE 01/10/17 11:56 01/10/17 11:57 DC Allergies Allergies Allergies Coded Allergies Type Severity Reaction Last Updated Verified Penicillins Allergy Intermediate 07/01/16 Yes amoxicillin Allergy Intermediate 07/01/16 Yes tramadol Allergy Intermediate 07/01/16 Yes acetaminophen Allergy Mild 07/01/16 Yes clavulanic acid Allergy Unknown 4/11/17 Yes Physical Exam Physical Exam Constitutional: Well developed, well nourished, no acute distress, non-toxic appearance. [] HENT: Normocephalic, atraumatic, bilateral external ears normal, oropharynx moist, no oral exudates, nose normal. [] Eyes: PERRLA, EOMI, conjunctiva normal, no discharge. [] Neck: Normal range of motion, no tenderness, supple, no stridor. [] Cardiovascular:Heart rate regular rhythm, no murmur [] Lungs & Thorax: Bilateral breath sounds clear to auscultation [] Abdomen: Bowel sounds normal, soft, no masses, no pulsatile masses. He has tenderness in the epigastrium and slight tenderness suprapubic. No masses no rebound no guarding. Rectal examination reveals he is tender over his prostate Skin: Warm, dry, no erythema, no rash. [] Back: No tenderness, no CVA tenderness. [] Extremities: No tenderness, no cyanosis, no clubbing, ROM intact, no edema. [] Neurologic: Alert and oriented X 3, normal motor function, normal sensory function, no focal deficits noted. [] Psychologic: Affect normal, judgement normal, mood normal. [] Current Patient Data Vital Signs Vital Signs Date Time Temp Pulse Resp B/P (MAP) Pulse Ox O2 Delivery O2 Flow Rate FiO2 01/10/17 12:01 Room Air 01/10/17 11:35 98.1 94 20 98 Lab Results Laboratory Tests Test 01/10/17 11:53 White Blood Count 8.7 x10^3/uL (4.0-11.0) Red Blood Count 4.49 x10^6/uL (4.30-5.70) Hemoglobin 14.2 g/dL (13.0-17.5) Hematocrit 40.6 % (39.0-53.0) Mean Corpuscular Volume 91 fL (79-100) Mean Corpuscular Hemoglobin 32 pg (25-35) Mean Corpuscular Hemoglobin Concent 35 g/dL (31-37) Red Cell Distribution Width 12.5 % (11.5-14.5) Platelet Count 248 x10^3/uL (140-400) Neutrophils (%) (Auto) 45 % (31-73) Lymphocytes (%) (Auto) 43 % (24-48) Monocytes (%) (Auto) 7 % (0-9) Eosinophils (%) (Auto) 4 % (0-3) H Basophils (%) (Auto) 1 % (0-3) Neutrophils # (Auto) 4.0 x10^3uL (1.8-7.7) Lymphocytes # (Auto) 3.8 x10^3/uL (1.0-4.8) Monocytes # (Auto) 0.6 x10^3/uL (0.0-1.1) Eosinophils # (Auto) 0.3 x10^3/uL (0.0-0.7) Basophils # (Auto) 0.1 x10^3/uL (0.0-0.2) EKG EKG [] Radiology/Procedures Radiology/Procedures [] Impressions: Acute Pancreatitis Course & Med Decision Making Course & Med Decision Making Evaluation of the patient's laboratory data reveals CBC is essentially unremarkable Lipase is elevated at 1143 CT scan of the abdomen and pelvis is unremarkable Because of the patient's persistent pain requiring IV narcotics was decided to admit the patient for further treatment and evaluation [] Dragon Disclaimer Dragon Disclaimer This chart was dictated in whole or in part using Voice Recognition software in a busy, high-work load, and often noisy Emergency Department environment. It may contain unintended and wholly unrecognized errors or omissions. Departure Departure: Referrals: SHARMIN JOSHUA MD (PCP) EDE DANIELS MD Jan 10, 2017 12:16
--- NOTE | 2017-01-10 12:29 | RAD ---
Indication nausea. Pelvic pain. Pressure between the testicle and anus. Axial images through the abdomen and pelvis were obtained. 75 cc of Omnipaque 300 was administered intravenously. No oral contrast was administered. Note is made of a prior examination of the abdomen and pelvis September 03, 2016. The lung bases are clear. The liver and spleen appear unremarkable. The gallbladder appears grossly normal. No pancreatic abnormality is seen. There is a small left renal calculus. Some slight cortical scarring involving the kidneys is seen. The kidneys are unchanged relative to the previous exam. An acute finding in the abdomen is not seen. The appendix is seen in the right lower quadrant and appears normal. A focal mass inflammatory process or acute finding in the pelvis is not seen. IMPRESSION: No acute finding seen in the abdomen or pelvis.
[2017-01-10] MEDS ORDERED: ONDANSETRON PF 4 MG/2 ML VIAL. IV PRN ×2 (12:45→13:45)
[2017-01-10 12:49] LABS: COLOR,URINE YELLOW
[2017-01-10 12:50] LABS: BACTERIA,URINE 0 /HPF (0-FEW); BILIRUBIN,URINE NEG (NEG); CLARITY,URINE CLEAR; GLUCOSE,URINE NEG (NEG); NITRITE,URINE NEG (NEG); RBC,URINE 0 /HPF (0-2); UROBILINOGEN,URINE 0.2 mg/dL (0.2 mg/dL); WBC,URINE 0 /HPF (0-4)
[2017-01-10] MEDS ORDERED: METOCLOPRAMIDE HCL 10 MG/2 ML VIAL. IV PRN (14:00)
[2017-01-10 14:54] VITALS: BP 160/92
[2017-01-10] MEDS: NICOTINE 21MG PATCH. TD SCH (15:03)
[2017-01-10] MEDS: IV NORMAL SALINE 1,000ML 1,000 ML IV SCH (15:04)
[2017-01-10] MEDS: fentaNYL PF 100 MCG/2 ML VIAL IV PRN ×4 (15:04→22:03)
[2017-01-10] MEDS: oxyCODONE IR 5 MG TABLET PO PRN (18:20)
[2017-01-10 19:32] VITALS: BP 155/87
--- NOTE | 2017-01-10 20:10 | ACF ---
Admission Criteria Forms ABDOMINAL PAIN Clinical Indications for Admission to Inpatient Care (Place 'X' for any and all applicable criteria): Admission is indicated for ANY ONE of the following(1)(2)(3)(4)(5): [X]I. Inpatient admission required rather than observation care (Also use Abdominal Pain: Observation Care, as appropriate) because of ANY ONE of the following: [ ]a) Severe pain requiring acute inpatient management [X]b) Identification of etiology/finding that requires inpatient care (eg, aortic dissection, free air) [ ]c) Absent bowel sounds with complete ileus(6) [ ]d) Suspected toxic megacolon [ ]e) Severe electrolyte abnormalities requiring inpatient care [ ]f) High fever or infection requiring inpatient admission as indicated by ANY ONE of following(7)(8): [ ] i) Appropriate outpatient or observational care antimicrobial treatment unavailable, not effective, or not feasible [ ] ii) Documented bacteremia [ ] iii) Temperature > 104.9 degrees F (oral) [ ] iv) T >103.1 F (oral) or < 96.8 F(rectal) that does not respond to all emergency treatment measures [ ]g) Signs of intestinal obstruction [B] [ ]h) Hemodynamic instability [ ]i) IV fluid to replace significant ongoing losses (greater than 3 L/m2 per day) (12)(13) [ ]j) Percutaneous or open drainage (eg, abscess, biliary tract ) procedures [ ]k) Parenteral nutrition regimen that must be implemented on inpatient basis [ ]l) Other condition,treatment or monitoring requiring inpatient admission. [ ]II. Peritoneal signs present [ ]III. Surgery needed that cannot be performed on an ambulatory basis. [ ]IV. Evaluation requires patient to not eat or drink for extended period ( eg, more than 24 hours). [ ]V. Contraindications and/or Inappropriate clinical situations for Observational Care in patients with abdominal pain, when ANY ONE of the following is required: [ ]a) Thorough evaluation is required to prevent catastrophic events due to delays in diagnosing (e.g.Mesenteric ischemia) 1,3 [ ]b) Patient with severe pathology or with chronic symptoms unlikely to improve in the ED stay (3) [ ]. General contraindications and/or Inappropriate clinical situations for Observational Care in patients with abdominal pain, when ANY ONE of the following is required: [ ]a) Prediction of prolongation of LOS based on ANY ONE of the following may be considered as a contraindication for observational care 2, 3, 4, 5, 6, 7, 8, 9, 10, 11 [ ]i) Age > 65 yrs. [ ]ii) Patient arriving by ambulance [ ]iii) Patient with high acuity [ ]iv) Patient requiring vital sign monitoring [ ]v) Patient on IV medication [ ]b) Systolic blood pressures 180mmHg 3,12 [ ]c) Patient with altered mental status including delirium and other alteration of consciousness, (3) [ ]d) Patient whose discharge disposition will be to a long-term home or rehabilitation home should not be managed in Emergency Department Observation Unit. CMS rule requires 3 days hospital stay before such placement.3,13 [ ]e) Patient with failure to thrive due to broad array of etiologies 3,16,17 [ ]f) Inability to ambulate 3,14 Extended stay beyond goal length of stay may be needed for(2)(3): [ ]a) Persistent abdominal pain with suspected intra-abdominal process [ ]b) Diagnosed condition requiring continued stay (e.g., pancreatitis, complicated diverticulitis) [ ]c) Surgery (e.g., colectomy) The original [facility] content created by [employer] has been revised. The portions of the content which have been revised are identified through the use of italic text or in bold, and [facility] has neither reviewed nor approved the modified material.All other unmodified content is copyright [employer]. Please see references footnoted in the original [facility] edition 2016 Admission Criteria Met?: Yes VERONICA BEY Jan 10, 2017 20:10
--- NOTE | 2017-01-10 20:36 | HP ---
ADMIT DATE: 01/10/2017 HISTORY OF PRESENT ILLNESS: The patient is a 31-year-old male patient who came to the Emergency Room complaining of pain in the suprapubic area and also that started at 2:30 early in the morning. While urinating he developed pain also in that area and also developed pain in the epigastrium as well. He stated that he does have a history of pancreatitis. He does have some nausea, but no vomiting. Denied any diarrhea. He was evaluated in the Emergency Room, was found to have markedly elevated serum amylase of 1143, blood glucose was slightly elevated; however, no leukocytosis. Urinalysis was essentially unremarkable. CT scan of the abdomen and pelvis showed no evidence of any acute finding. In particular, no pancreatic abnormalities detected. The gallbladder appears grossly normal and was admitted for acute pancreatitis transpired that he was diagnosed for the first time in 06/15/2016 and has been admitted to the hospital almost every month and sometime is more than once for relapsing for [id number] pancreatitis. He quit drinking going on 05/03/2016 and first episode of pancreatitis started on 06/15/2016. He used to be a heavy drinker and he quit drinking about 251 days. PAST MEDICAL HISTORY: Significant for irritable bowel syndrome, nephrolithiasis. He stated that he passed the stone spontaneously in 03/2016. 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 He has childhood asthma that he is out grown. 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 ALLERGIES: He is allergic to PENICILLIN, TYLENOL, AMOXICILLIN, and CLAVULANIC ACID as well as TRAMADOL and MORPHINE. MEDICATIONS: He is currently on following medications: He is on albuterol sulfate 2 puffs every 4 hours, azithromycin 250 mg once a day, dicyclomine 20 mg every 4 hours, hydrocodone/ibuprofen 7.5/200 every 6 hours, ondansetron 4 mg every 6 hours, prednisone 20 mg p.o. b.i.d., ranitidine 150 mg twice a day, simethicone 80 mg 3 times a day, sucralfate 1 gram 4 times a day and he also was on sulfamethoxazole, trimethoprim for 10 days. FAMILY HISTORY: He has 1 older brother who is 33 years old, has rheumatoid arthritis. His sister is 26 years old and healthy. His father is still alive at age of 57 he has severe deforming advanced rheumatoid arthritis. Mother is 55 and has multiple skin cancers. SOCIAL HISTORY: He is engaged has continued to smoke 6-10 cigarettes per day. He stated that he is sober for about 251 days. He used to smoke marijuana, but quit smoking marijuana when he quit drinking. He currently works as a cook for [employer] 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 Denied any earache, tinnitus, or sensorineural deafness. Denied any nosebleeds, stuffy nose or postnasal drip. Denied any sore throat, sore tongue, toothache, hoarseness of voice or difficulty swallowing. Should he has constant nausea, but no vomiting, no diarrhea or constipation. Denied any hematemesis, melena or hematochezia. Denied any dysuria, frequency or hematuria. Denied any chest pain, shortness of breath, orthopnea, or paroxysmal nocturnal dyspnea. PHYSICAL EXAMINATION: GENERAL: When I examined him, he looked well and was clearly in no apparent respiratory distress, pale, but no jaundice, cyanosis, or thyromegaly. No jugular venous distention. No limb edema. VITAL SIGNS: His heart rate was 70, blood pressure 160/92, temperature was 97.6, respiratory rate 20, and oxygen saturation was 98%. HEAD, EYES, EARS, NOSE, AND THROAT: Showed normocephalic, atraumatic. NECK: Supple. HEART: Showed normal first and second heart sounds with no gallop, rub or murmur. CHEST: Clear to auscultation. No crepitation or rhonchi. ABDOMEN: Mild distended, soft, nontender. No guarding or rigidity. No organomegaly. Hernial orifices intact. Bowel sounds normal. NEUROLOGIC: He was awake, alert, responding appropriately. Cranial nerves intact. EXTREMITIES: He moves extremities without difficulty. He ambulates without assistance or assistive devices. LABORATORY DATA: Showed a white cell count of 8700, hemoglobin 14, hematocrit 40, MCV 91, and platelet count 248,000. Serum sodium was 139, potassium 3.9, chloride 104, bicarbonate 27, anion gap of 8, BUN 11, creatinine 1.2, estimated GFR was 70 mL per minute. His glucose 146, calcium was 8.9. Total bilirubin, AST, ALT, alkaline phosphatase were normal. His total protein was 7.9, albumin 4.1 and his serum lipase was 1143. Urinalysis was essentially unremarkable. CT scan of the abdomen and pelvis showed that the lung bases are clear. The liver and spleen appears unremarkable. The gallbladder appears grossly normal. ____ abnormality is seen. There is small left renal calculus some slight cortical scarring involving the kidneys is seen. The kidneys are unchanged relative to previous exam. An acute finding in the abdomen has not seen. His appendix is seen in the right lower quadrant and if there is appears normal, a focal mass inflammatory process or acute finding ____ not seen. ASSESSMENT AND PLAN: The patient was admitted with acute pancreatitis transpired that he has multiple relapses approaches admitted multiple times to [facility]. His serum triglycerides were slightly high, but not really that ended 300 probably not in 1000. His gallbladder is normal. His calcium is normal. Alcohol remains most likely suspect. I plan to start him on a clear liquid diet, continue with IV fluid, and IV pain medication. We will repeat his lab work tomorrow and decide on further management accordingly. AZIZA GOEL MD DR: BEV/mika JOB#: [id number] / [id number]
[2017-01-11] MEDS: oxyCODONE IR 5 MG TABLET PO PRN ×2 (00:07→10:06)
[2017-01-11] MEDS: IV NORMAL SALINE 1,000ML 1,000 ML IV SCH ×2 (00:08→10:06)
[2017-01-11 00:11] VITALS: BP 150/91
[2017-01-11] MEDS: fentaNYL PF 100 MCG/2 ML VIAL IV PRN ×5 (00:14→12:06)
[2017-01-11 05:40] VITALS: BP 143/89
[2017-01-11 06:31] LABS: HEMATOCRIT 36.2 % (39.0-53.0); HEMOGLOBIN 12.5 g/dL (13.0-17.5); RED BLOOD COUNT 3.99 x10^6/uL (4.30-5.70); RED CELL DISTRIBUTION WIDTH 12.6 % (11.5-14.5); WHITE BLOOD COUNT 6.3 x10^3/uL (4.0-11.0)
[2017-01-11 06:47] LABS: ALBUMIN 3.4 g/dL (3.4-5.0); ALBUMIN/GLOBULIN RATIO 1.1 (1.0-1.7); CALCIUM 8.3 mg/dL (8.5-10.1); GFR 87.2; POTASSIUM 4.1 mmol/L (3.5-5.1); TOTAL BILIRUBIN 0.9 mg/dL (0.2-1.0); TOTAL PROTEIN 6.6 g/dL (6.4-8.2)
[2017-01-11] MEDS: NICOTINE 21MG PATCH. TD SCH (08:51)
[2017-01-11 11:42] VITALS: BP 162/76
--- NOTE | 2017-01-12 04:30 | DS ---
DATE OF DISCHARGE: 01/11/2017 HISTORY OF PRESENT ILLNESS: The patient is a 31-year-old male patient who was admitted yesterday with elevated serum lipase, complaining of abdominal pain. In fact, when he presented to the Emergency Room, the pain was in the suprapubic area. He stated that he used to be a heavy alcohol drinker. He quit drinking on 05/03/2016 and first episode of pancreatitis started after he quit drinking on 06/15/2016, recounted that [facility] Room visits. He was seen at least twice by financial services associate who did not convinced that this is pancreatitis. I spoke today with Dr. Simpson, financial services associate and he stated that in the phase of normal imaging studies, no evidence of pancreatitis throughout all this admission. He definitely does not believe that this is pancreatitis. His CT scan that was done yesterday it stated clearly that there is no pancreatic abnormality seen in the CT scan. The gallbladder was normal, no stones. Liver and spleen are unremarkable. Later, the patient states that there is definitely no evidence of any radiological evidence of pancreatitis and he has only elevated serum lipase without acute pancreatitis. The patient was discharged home to continue on his home medications. I did not prescribe any pain medication for him. PHYSICAL EXAMINATION: VITAL SIGNS: His heart rate of 78, blood pressure was 162/76, temperature was 97.6, respiratory rate 20 and oxygen saturation was 95%. The rest of clinical examination is unremarkable. LABORATORY DATA: His serum sodium was 138, potassium 4.1, chloride 105, bicarbonate 29, anion gap of 4, BUN 9, creatinine 1. Estimated GFR was 87 mL per minute. His glucose was 88. Calcium was 8.3. Total bilirubin, AST, ALT, alkaline phosphatase were normal. Total protein was 6.6, albumin was 3.4. Serum amylase was high at 1142, has not changed from yesterday. His white cell count is normal at 6300, hemoglobin 12.5, hematocrit 36, MCV 91 and platelets 199,000. FINAL DISCHARGE DIAGNOSES: 1. Elevated serum lipase with no evidence of pancreatitis. 2. Irritable bowel syndrome. AZIZA GOEL MD DR: BEV/mika JOB#: [id number] / [id number]
== END 2017-01-11 15:26 | disposition home or self-care (01) | DRG 392 ==
LOC: ER 11:21 → 1 SOUTH 14:46
PROVIDERS: ADMIT Internal Medicine; ATTEND Internal Medicine
DX: K58.9 Irritable bowel syndrome, unspecified (principal); F17.210 Nicotine dependence, cigarettes, uncomplicated; F12.90 Cannabis use, unspecified, uncomplicated; Z80.8 Family history of malignant neoplasm of other organs or systems; Z87.442 Personal history of urinary calculi; Z88.1 Allergy status to other antibiotic agents; Z88.5 Allergy status to narcotic agent; Z88.0 Allergy status to penicillin; Z88.8 Allergy status to other drugs, medicaments and biological substances
CPT/HCPCS: 36415; 74177; 80053; 80061; 81001; 82248; 83690; 85027; 96361; 96374; 96375; 96376; J2405; J3010; 99285-25; J7030

== ENCOUNTER 2017-01-17 02:45 | Emergency (ER) | payer SELFPAY ==
[2017-01-17] MEDS: IV NORMAL SALINE 1,000ML 1,000 ML IV SCH (02:53)
[2017-01-17 02:55] VITALS: BP 169/78
[2017-01-17] MEDS: KETOROLAC 30 MG/ML VIAL. IV ONE (03:00)
[2017-01-17] MEDS: ONDANSETRON PF 4 MG/2 ML VIAL. IV ONE (03:00)
--- NOTE | 2017-01-17 03:25 | PHYS DOC ---
General Chief Complaint: ABDOMINAL PAIN Stated Complaint: PANCREATITIS Time Seen by MD: 02:47 Source: patient, old records Exam Limitations: no limitations Problems: History of Present Illness Initial Comments Patient is a 31-year-old male who comes to the ED complaining of pancreatitis recurrance. Patient states that approximately 11 PM yesterday he developed sudden onset epigastric pain described as sharp and crampy moderate to severe in intensity and no exacerbating or relieving factors known. He's had nausea but no vomiting , last bowel movement was midnight described as normal. Last by mouth intake was at 11 AM yesterday chicken Chema. Patient denies any recent alcohol or drug intake. Symptoms are consistent with prior exacerbations of pancreatitis. Patient was first diagnosed with pancreatitis on June 15, 2016. He is being admitted 1-2 times per month for pancreatitis since that time either at [facility] or [facility]. He has a history of heavy alcohol intake but quit smoking marijuana and drinking alcohol reportedly on May 03, 2016. He does continue to smoke cigarettes. Patient is requesting pain medications. Emergency Department vital signs: 98.1, 95, 20, 169/78, 97% room air Timing/Duration: 4-6 hours Severity: severe Modifying Factors: improves with medication Associated Symptoms: nausea/vomiting, other Allergies: Coded Allergies: Penicillins (Verified Allergy, Intermediate, 07/01/16) amoxicillin (Verified Allergy, Intermediate, 07/01/16) tramadol (Verified Allergy, Intermediate, 07/01/16) acetaminophen (Verified Allergy, Mild, 07/01/16) clavulanic acid (Verified Allergy, Unknown, 11/14/16) Past Medical History Medical History: other (chronic pancreatitis, irritable bowel syndrome, nephrolithiasis) Surgical History: noncontributory (bilateral eyes, tumor behind left ear) Social History Smoker: cigarettes Alcohol: sober (claims sobriety since May 03, 2016 history of heavy intake prior to that) Drugs: marijuana (stopped using in April last year) Review of Systems Constitutional: denies chills, denies diaphoresis, denies fever, denies malaise Respiratory: denies cough, denies shortness of breath, denies wheezing Cardiovascular: denies chest pain, denies palpitations, denies syncope Gastrointestinal: abdominal pain, denies constipation, denies diarrhea, nausea , denies vomiting Genitourinary: denies dysuria, denies frequency, denies hematuria Musculoskeletal: denies back pain, denies joint swelling, denies neck pain Skin: denies change in color, denies lesions, denies rash Psychiatric/Neurological: denies headache, denies numbness, denies paresthesia Physical Exam General Appearance: no apparent distress (wearing [employer]'s work uniform) Eyes: bilateral eye normal inspection, bilateral eye PERRL, bilateral eye EOMI Ear, Nose, Throat: hearing grossly normal, normal ENT inspection, normal pharynx Neck: non-tender, supple Respiratory: normal breath sounds, no respiratory distress Cardiovascular: normal peripheral pulses, regular rate, rhythm Gastrointestinal: normal bowel sounds, soft (mild left upper quadrant tenderness elicited no rebound guarding or masses no skin color changes at the abdomen flank or back), no organomegaly Back: no CVA tenderness, no vertebral tenderness Extremities: non-tender, normal inspection Neurologic/Psychiatric: education supervisor II-XII nml as tested, no motor/sensory deficits, alert, oriented x 3 Skin: normal color, warm/dry Orders, Labs, Meds Labs all normal. CBC, CMP, CK, troponin, CRP, amylase, lipase all 100% within normal limits. No urine studies as no specimens submitted. 0426: Labs unremarkable, CT pending. Pt has continued to request pain medications. I advised him he must submit urine specimen prior to more analgesics as further delay will ultimately delay his care. A few moments after I left the exam room pt requests I come speak with him. He has suddenly decided that he needs to leave and allow his to take him home before she goes to work. He says he will contact medical records or follow up with his doctor regarding CT results. It appears that once he decided he may not be getting any more pain medications he has decided he is good to leave for home. Drug seeking behavior strongly suspected. CT result came after the patient was discharged. PATIENT: ARI LOPEZ ACCOUNT: [id number] : 1985 LOCATION: ER AGE: 31 SEX: M EXAM STATUS: REG ER ORD. PHYSICIAN: MANJU PAYNE DO REASON: pancreatitis PROCEDURE: CT ABD PELV W/ IV CONTRST ONLY Examination: CT of the abdomen and pelvis with IV contrast HISTORY: History of abdominal pain COMPARISON: None available TECHNIQUE: Axial CT images of the abdomen and pelvis were performed with IV contrast and coronal and sagittally. Exposure: One or more of the following individualized dose reduction techniques were utilized for this examination: 1. Automated exposure control 2. Adjustment of the mA and/or kV according to patient size 3. Use of iterative reconstruction technique FINDINGS: The visualized bibasilar lungs grossly appears unremarkable. No evidence of free air identified in the abdomen. The visualized liver, spleen, adrenals grossly appears unremarkable. The visualized pancreas grossly appears unremarkable. The gallbladder is mildly distended. The stomach is mildly distended. The small bowel is nondilated. The appendix grossly appears unremarkable. Feces and gas noted in the colon. There is mild thickened appearance of the wall of the sigmoid colon with minimal surrounding fat stranding. Urinary bladder is mildly distended The caliber of the aorta grossly appears unremarkable. Punctate 2 mm intrarenal collecting system calculus identified in the left kidney. No evidence of lytic or destructive lesion. IMPRESSION: 1. Mild thickened appearance of the wall of the sigmoid colon with minimal surrounding fat stranding could be mild colitis. 2. Punctate 2 mm intrarenal calculus identified in the left kidney. Electronically signed by: Abhijit Sahu MD (01/17/2017 4:49 AM) DICTATED AND SIGNED BY: ABHIJIT SAHU MD DATE: 01/17/17 0444 CC: PCP,TRINIDAD; MANJU PAYNE DO ~ Departure Time of Disposition: 04:31 Disposition: 01 HOME, SELF-CARE Diagnosis: abdominal discomfort NOS, tobaccoism Condition: GOOD Patient Instructions: Abdominal Pain, Smoking Cessation, Tips For Success Additional Instructions: You have chosen to leave before your CT results are available. Clear liquids today, advance slowly to a bland diet tomorrow as tolerated. Stop smoking seek medical assistance if necessary. Continue current medications. Aqci-bby-nqcichd Tylenol and/or ibuprofen as needed for discomfort. Follow-up with your doctor or Sunday for recheck and CT results. Return to the ED with new or changing symptoms. MANJU PAYNE DO Jan 17, 2017 03:24
[2017-01-17] MEDS ORDERED: MORPHINE SULFATE 4 MG/ML DISP.SYRIN. IV/SQ PRN (03:30)
[2017-01-17] MEDS ORDERED: PROMETHAZINE 25 MG in IV NORMAL SALINE 50ML 50 ML IV PRN (03:30)
[2017-01-17 03:41] LABS: ALBUMIN 4.2 g/dL (3.4-5.0); ALBUMIN/GLOBULIN RATIO 1.1 (1.0-1.7); BASO % 0 % (0-3); C REACTIVE PROTEIN 2.9 mg/L (0-3.3); CREATININE 1.1 mg/dL (0.7-1.3); EOS % 0 % (0-3); GFR 78.1; HEMATOCRIT 39.9 % (39.0-53.0); HEMOGLOBIN 13.6 g/dL (13.0-17.5); LYMPH # 2.1 x10^3/uL (1.0-4.8); LYMPH % 31 % (24-48); MEAN CORPUSCULAR HEMOGLOBIN 31 pg (25-35); MEAN CORPUSCULAR HGB CONC 34 g/dL (31-37); MEAN CORPUSCULAR VOLUME 91 fL (79-100); MONO # 0.5 x10^3/uL (0.0-1.1); MONO % 7 % (0-9); NEUT # 4.2 x10^3uL (1.8-7.7); NEUT % 61 % (31-73); PLATELET COUNT 215 x10^3/uL (140-400); POTASSIUM 3.5 mmol/L (3.5-5.1); RED BLOOD COUNT 4.37 x10^6/uL (4.30-5.70); RED CELL DISTRIBUTION WIDTH 12.5 % (11.5-14.5); TOTAL BILIRUBIN 0.7 mg/dL (0.2-1.0); TOTAL PROTEIN 7.9 g/dL (6.4-8.2); WHITE BLOOD COUNT 6.8 x10^3/uL (4.0-11.0)
[2017-01-17] MEDS ORDERED: CONTRAST GIVEN MC PRN (04:00)
[2017-01-17] MEDS: IOHEXOL 300 MG/ML 75 ML VIAL. IV ONE (04:22)
--- NOTE | 2017-01-17 04:52 | RAD ---
Examination: CT of the abdomen and pelvis with IV contrast HISTORY: History of abdominal pain COMPARISON: None available TECHNIQUE: Axial CT images of the abdomen and pelvis were performed with IV contrast and coronal and sagittally. Exposure: One or more of the following individualized dose reduction techniques were utilized for this examination: 1. Automated exposure control 2. Adjustment of the mA and/or kV according to patient size 3. Use of iterative reconstruction technique FINDINGS: The visualized bibasilar lungs grossly appears unremarkable. No evidence of free air identified in the abdomen. The visualized liver, spleen, adrenals grossly appears unremarkable. The visualized pancreas grossly appears unremarkable. The gallbladder is mildly distended. The stomach is mildly distended. The small bowel is nondilated. The appendix grossly appears unremarkable. Feces and gas noted in the colon. There is mild thickened appearance of the wall of the sigmoid colon with minimal surrounding fat stranding. Urinary bladder is mildly distended The caliber of the aorta grossly appears unremarkable. Punctate 2 mm intrarenal collecting system calculus identified in the left kidney. No evidence of lytic or destructive lesion. IMPRESSION: 1. Mild thickened appearance of the wall of the sigmoid colon with minimal surrounding fat stranding could be mild colitis. 2. Punctate 2 mm intrarenal calculus identified in the left kidney. Electronically signed by: Abhijit Sahu MD (01/17/2017 4:49 AM)
== END 2017-01-17 04:50 | disposition home or self-care (01) ==
LOC: ER 02:45
DX: R10.13 Epigastric pain (principal); R11.0 Nausea; K58.9 Irritable bowel syndrome, unspecified; K86.1 Other chronic pancreatitis; Z87.442 Personal history of urinary calculi; F17.210 Nicotine dependence, cigarettes, uncomplicated; Z88.0 Allergy status to penicillin; Z88.1 Allergy status to other antibiotic agents; Z88.6 Allergy status to analgesic agent
CPT/HCPCS: 36415; 74177; 80053; 80320; 82150; 82550; 83690; 83735; 84484; 85027; 86140; 96361; 96374; 96375; 99285; G0480; J1885; J2405; Q9967; G0481; J7030

== ENCOUNTER 2017-03-11 00:59 | Emergency (ER) | payer OTHER ==
[~2017-03-11] VITALS: Ht 177.8 cm; Wt 79.0 kg
[2017-03-11 01:10] VITALS: BP 145/87
--- NOTE | 2017-03-11 01:36 | PHYS DOC ---
Past History Past Medical History: IBS, Pancreatitis Past Surgical History: No Surgical History Alcohol Use: Sober Drug Use: None Adult General Chief Complaint Chief Complaint: LOWEREXTREMITY INJURY HPI HPI Patient is a 31 year old M who presents with left ankle pain. Patient states he was at work yesterday and slipped and fell and injuring his right lower extremity. Patient completed the pain to his right ankle and right distal tibia. Patient states he is able to walk on it however it is painful and he walks with a limp. Patient states work sent to the emergency room for further evaluation. Patient denied any other injuries. Patient denies any pain to the hip or knee. Review of Systems Review of Systems GEN: Denies fevers, chills, sweats HEENT: Denies blurred vision, sore throat CV: Denies chest pain RESP: Denies shortness of air, cough GI: Denies n/v/d NEURO: Denies confusion, dizziness MSK: Right lower extremity pain Allergies Allergies Allergies Coded Allergies Type Severity Reaction Last Updated Verified Penicillins Allergy Intermediate 07/01/16 Yes amoxicillin Allergy Intermediate 07/01/16 Yes tramadol Allergy Intermediate 07/01/16 Yes acetaminophen Allergy Mild 07/01/16 Yes clavulanic acid Allergy Unknown 11/14/16 Yes Physical Exam Physical Exam GEN.: No apparent distress. Alert and oriented. HEENT: Head is normocephalic, atraumatic NECK: Supple. LUNGS: CTAB. HEART: RRR, S1, S2 present. Peripheral pulses intact ABDOMEN: Soft, nontender. Positive bowel sounds. EXTREMITIES: Without any cyanosis, tenderness palpation to the right lateral malleolus and right distal tibia with minimal swelling, good right dorsal pedis pulse palpated with capillary refill less than 2 seconds on the right foot NEUROLOGIC: Normal speech, normal tone PSYCHIATRIC: Normal affect, normal mood. SKIN: No ulcerations Current Patient Data Vital Signs Vital Signs Date Time Temp Pulse Resp B/P (MAP) Pulse Ox O2 Delivery O2 Flow Rate FiO2 03/11/17 01:10 98.0 92 16 96 Room Air EKG EKG [] Radiology/Procedures Radiology/Procedures X-ray right ankle no obvious fracture X-ray right tib-fib no obvious fracture [] Course & Med Decision Making Course & Med Decision Making Pertinent Labs and Imaging studies reviewed. (See chart for details) ED course: Patient was seen and examined emergency room x-ray of the right ankle and right tib-fib were ordered 0203: Updated patient on x-ray results and plan to discharge home and to use knxm-ayk-yvuhpwf pain medication as needed and will place the patient in [facility] and recommended short-term follow-up as PCP MDM: After reviewing the chart, CC/HPI/PMH, physical exam, [radiological results], I do not believe the patient sustained a significant traumatic injury to the right lower extremity warranting further workup and/or admission at this time. Patient was placed in [facility] and post-application the patient was neurovascularly intact. Patient is stable for discharge. Additional verbal discharge instructions were provided to the patient and that if symptoms get worse or any new symptoms arise that are worrisome to the patient he is to return to the emergency room immediately [] Dragon Disclaimer Dragon Disclaimer This chart was dictated in whole or in part using Voice Recognition software in a busy, high-work load, and often noisy Emergency Department environment. It may contain unintended and wholly unrecognized errors or omissions. Departure Departure: Impression: Primary Impression: Right ankle sprain Disposition: 01 HOME, SELF-CARE Condition: STABLE Referrals: PCP,NO (PCP) Patient Instructions: Ankle Sprain, Yyet-qk-Vgli Additional Instructions: Please follow up with your family physician in the next one to 2 days and return if symptoms increase BEATRIZ LIMA DO Mar 11, 2017 01:36
--- NOTE | 2017-03-11 01:56 | RAD ---
INDICATION: [id number] Injury from fall 2 days ago, severe ankle and lower leg pain. No priors. COMPARISON: None. IMPRESSION: Right ankle: 3 views obtained. No definite acute fracture or dislocation. Electronically signed by: Yonas Tanner MD (03/11/2017 1:52 AM) [facility]
--- NOTE | 2017-03-11 08:08 | RAD ---
Indication pain associated with an injury 2 days previously. AP and lateral views of the right tibia and fibula were obtained although the distal aspect of the tibia and fibula are not included on these 2 images. Ankle films were obtained which is the subject of a separate dictation. No fracture or bony abnormality is seen
== END 2017-03-11 02:15 | disposition home or self-care (01) ==
LOC: ER 00:59
DX: S93.401A Sprain of unspecified ligament of right ankle, initial encounter (principal); K58.9 Irritable bowel syndrome, unspecified; Z88.1 Allergy status to other antibiotic agents; Z88.6 Allergy status to analgesic agent; Z88.0 Allergy status to penicillin; W01.0XXA Fall on same level from slipping, tripping and stumbling without subsequent striking against object, initial encounter; Y93.89 Activity, other specified; Y99.8 Other external cause status; Y92.89 Other specified places as the place of occurrence of the external cause
CPT/HCPCS: 73590; 73610; 99284; L4350

== ENCOUNTER 2017-04-14 16:01 | Emergency (ER) | payer OTHER ==
[2017-04-14 16:15] VITALS: BP 142/93
--- NOTE | 2017-04-14 16:17 | PHYS DOC ---
Past History Past Medical History: IBS, Pancreatitis Past Surgical History: No Surgical History Smoking: Cigarettes Alcohol Use: Sober Drug Use: None Adult General Chief Complaint Chief Complaint: COUGH HPI HPI 31-year-old male presenting to the emergency department today with a cough congestion sore throat and generalized fatigue and malaise. This started about 2 or 3 days ago. Nonradiating intermittent and without alleviating or exacerbating factors. Review of systems is negative for chest pain abdominal pain nausea vomiting diaphoresis fevers or chills. All other review of systems is negative unless otherwise noted in history of present illness. ED course: 31-year-old male presenting to the emergency department with symptomatology consistent with viral URI. X-ray and strep test negative. Patient discharged home. I recommended oral fvcp-crn-usvfexr symptomatic medications such as NyQuil or DayQuil. The patient was then discharged home in stable condition to follow up with their primary care physician over the next 2- 3 days. They were to return if their symptoms worsened or if they were concerned for any reason. Nqil-nr-dciu discharge instructions and return precautions were given. Patient's questions were answered to their satisfaction. Patient is comfortable plan. Review of Systems Review of Systems SEE ABOVE. Allergies Allergies Allergies Coded Allergies Type Severity Reaction Last Updated Verified Penicillins Allergy Intermediate 07/01/16 Yes amoxicillin Allergy Intermediate 07/01/16 Yes tramadol Allergy Intermediate 07/01/16 Yes acetaminophen Allergy Mild 07/01/16 Yes clavulanic acid Allergy Unknown 11/14/16 Yes Physical Exam Physical Exam Constitutional: Well developed, well nourished, no acute distress, non-toxic appearance. [] HENT: Normocephalic, atraumatic, bilateral external ears normal, oropharynx moist, no oral exudates, nose normal. [] Eyes: PERRLA, EOMI, conjunctiva normal, no discharge. [] Neck: Normal range of motion, no tenderness, supple, no stridor. [] Cardiovascular:Heart rate regular rhythm, no murmur [] Lungs & Thorax: Bilateral breath sounds clear to auscultation [] Abdomen: Bowel sounds normal, soft, no tenderness, no masses, no pulsatile masses. [] Skin: Warm, dry, no erythema, no rash. [] Back: No tenderness, no CVA tenderness. [] Extremities: No tenderness, no cyanosis, no clubbing, ROM intact, no edema. [] Neurologic: Alert and oriented X 3, normal motor function, normal sensory function, no focal deficits noted. [] Psychologic: Affect normal, judgement normal, mood normal. [] EKG EKG [] Radiology/Procedures Radiology/Procedures [] Course & Med Decision Making Course & Med Decision Making Pertinent Labs and Imaging studies reviewed. (See chart for details) [] Dragon Disclaimer Dragon Disclaimer This chart was dictated in whole or in part using Voice Recognition software in a busy, high-work load, and often noisy Emergency Department environment. It may contain unintended and wholly unrecognized errors or omissions. Departure Departure: Impression: Primary Impression: Upper respiratory infection, viral Disposition: HOME, SELF-CARE Condition: STABLE Referrals: PCP,NO (PCP) Patient Instructions: Cough, Adult, Laryngitis, Mudy-ou-Xekq Additional Instructions: Thank you for allowing us to participate in your care today. Take tfyg-ngf-jcwzbdo NyQuil or DayQuil for symptomatic relief. Followup with your primary care physician in 3 days if your symptoms do not improve. Call your Primary Doctor tomorrow and inform them of your visit today. If you do not have a primary care provider you can ask for a list of our primary care providers. Return to the emergency department you have any new or concerning findings. This should be evaluated by the primary care physician and any necessary consulting services for continued management within a few days after discharge. Return to emergency room if you have any new or concerning symptoms including but not limited to fever, chills, nausea, vomiting, intractable pain, any new rashes, chest pain, shortness of air, uncontrolled bleeding, difficulty breathing, and/or vision loss. WYATT IRELAND MD Apr 14, 2017 16:17
--- NOTE | 2017-04-15 08:36 | RAD ---
Chest, 2 views, 04/14/2017: History: Cough and congestion Comparison is made to a study from 11/14/2016. The heart size is normal. No pulmonary is seen. There is no evidence of pleural fluid. IMPRESSION: No acute cardiopulmonary abnormality is detected.
== END 2017-04-14 17:20 | disposition home or self-care (01) ==
LOC: ER 16:01
DX: J06.9 Acute upper respiratory infection, unspecified (principal); K58.9 Irritable bowel syndrome, unspecified; Z88.6 Allergy status to analgesic agent; Z88.1 Allergy status to other antibiotic agents; Z88.0 Allergy status to penicillin
CPT/HCPCS: 71020; 87070; 87880; 99285-25

== ENCOUNTER 2017-07-25 18:03 | Emergency (ER) | payer OTHER ==
[~2017-07-25] VITALS: Ht 177.8 cm; Wt 69.3 kg
[2017-07-25] MEDS ORDERED: ONDANSETRON PF 4 MG/2 ML VIAL. ONE (18:58)
[2017-07-25] MEDS ORDERED: ONDANSETRON PF 4 MG/2 ML VIAL. IV ONE (19:00)
[2017-07-25] MEDS ORDERED: IV NORMAL SALINE 1,000ML 1,000 ML IV SCH (19:00)
[2017-07-25] MEDS ORDERED: KETOROLAC 30 MG/ML VIAL. IV ONE (19:00)
[2017-07-25 19:16] LABS: BASO % 1 % (0-3); EOS # 0.1 x10^3/uL (0.0-0.7); EOS % 2 % (0-3); HEMATOCRIT 44.3 % (39.0-53.0); HEMOGLOBIN 15.3 g/dL (13.0-17.5); LYMPH # 3.2 x10^3/uL (1.0-4.8); LYMPH % 45 % (24-48); MEAN CORPUSCULAR HEMOGLOBIN 31 pg (25-35); MEAN CORPUSCULAR HGB CONC 35 g/dL (31-37); MEAN CORPUSCULAR VOLUME 91 fL (79-100); MONO # 0.4 x10^3/uL (0.0-1.1); MONO % 6 % (0-9); NEUT # 3.4 x10^3uL (1.8-7.7); NEUT % 47 % (31-73); PLATELET COUNT 218 x10^3/uL (140-400); RED BLOOD COUNT 4.88 x10^6/uL (4.30-5.70); RED CELL DISTRIBUTION WIDTH 13.7 % (11.5-14.5); WHITE BLOOD COUNT 7.3 x10^3/uL (4.0-11.0)
[2017-07-25 19:22] LABS: ALBUMIN 4.3 g/dL (3.4-5.0); ALBUMIN/GLOBULIN RATIO 1.2 (1.0-1.7); AMPHETAMINE/METHAMPHETAMINE NEG (NEG); BARBITURATES NEG (NEG); BENZODIAZEPINES NEG (NEG); CALCIUM 9.6 mg/dL (8.5-10.1); CANNABINOIDS POS (NEG); COCAINE NEG (NEG); CREATININE 1.2 mg/dL (0.7-1.3); GFR 70.6; METHADONE NEG (NEG); OPIATES POS (NEG); PHENCYCLIDINE NEG (NEG); TOTAL BILIRUBIN 0.5 mg/dL (0.2-1.0)
[2017-07-25 19:43] LABS: BACTERIA,URINE 0 /HPF (0-FEW); BILIRUBIN,URINE NEG (NEG); CLARITY,URINE CLEAR; COLOR,URINE YELLOW; GLUCOSE,URINE NEG (NEG); NITRITE,URINE NEG (NEG); SQUAMOUS EPITHELIAL CELL,UR OCC /LPF; UROBILINOGEN,URINE 0.2 mg/dL (0.2 mg/dL)
[2017-07-25] MEDS ORDERED: IOHEXOL 240 MG/ML 50ML VIAL. PO ONE (19:45)
[2017-07-25] MEDS ORDERED: IOHEXOL 300 MG/ML 75 ML VIAL. IV ONE (19:45)
--- NOTE | 2017-07-25 22:10 | RAD ---
PQRS Compliance Statement: One or more of the following individualized dose reduction techniques were utilized for this examination: 1. Automated exposure control 2. Adjustment of the mA and/or kV according to patient size 3. Use of iterative reconstruction technique ABDOMEN/PELVIS CT WITH CONTRAST 08/04/2017. Reason For Study: Left upper quadrant abdominal pain with history of pancreatitis and renal calculi.. Comparison Studies: CT abdomen/pelvis January 17, 2017 Technique: Multiple axial images of the abdomen and pelvis were obtained following the intravenous administration of 75 mL Omnipaque 300. Oral contrast was also administered. Findings: The lung bases are unremarkable. The liver, spleen, pancreas, and adrenal glands are unremarkable. The gallbladder is present and contracted. There is a 3 mm nonobstructing calculus in the superior pole the left kidney. There is a 2 mm nonobstructing calculus in the superior pole the right kidney. Mild parenchymal thinning along the inferior aspect of the left kidney may represent sequela of prior infectious or vascular insult. No hydronephrosis. Appendix is normal in appearance.No bowel obstruction or dilatation. No ascites, lymphadenopathy, or free intraperitoneal air in the abdomen or pelvis. The bladder is unremarkable given degree of distention. There is no free fluid or enlarged lymph nodes in the pelvis. The course and caliber of the thoracoabdominal aorta is normal. There is a small right inguinal hernia containing fat. There are no suspicious osseous lesions. IMPRESSION: 1. No acute abnormality is identified in the abdomen and pelvis. 2. Bilateral nonobstructing nephrolithiasis. No hydronephrosis. Subtle parenchymal volume loss involving the lower pole of the left kidney may represent sequela of prior infectious or vascular insult. 3. Pancreas is normal in appearance. Electronically signed by: Mishel Antonio MD (07/25/2017 10:07 PM) [facility]
--- NOTE | 2017-07-25 22:13 | PHYS DOC ---
General Chief Complaint: ABDOMINAL PAIN Stated Complaint: ABDOMINAL PAIN Time Seen by MD: 18:48 Source: patient, old records Exam Limitations: no limitations Problems: History of Present Illness Initial Comments Patient is a 31-year-old male who comes to the ED complaining of severe abdominal pain. Patient has history of pancreatitis and chronic abdominal pain, he has multiple prior ED visits for this. He states that for the past 4 days hes had nausea vomiting and severe epigastric and left-sided abdominal pain consistent with prior pancreatitis. The patient is sobbing uncontrollably reportedly due to pain , he denies any fever or chills no diarrhea and appetite remains intact. He is afebrile on arrival heart rate 105 bpm, he says he refused hospitalization for pancreatitis last week due to his 's illness. Timing/Duration: other Severity: severe Modifying Factors: improves with other Associated Symptoms: nausea/vomiting, other Allergies: Coded Allergies: Penicillins (Verified Allergy, Intermediate, 07/01/16) amoxicillin (Verified Allergy, Intermediate, 07/01/16) tramadol (Verified Allergy, Intermediate, 07/01/16) acetaminophen (Verified Allergy, Mild, 07/01/16) clavulanic acid (Verified Allergy, Unknown, 11/14/16) morphine (Verified Allergy, Unknown, 07/25/17) Past Medical History Medical History: other (pancreatitis, chronic abdominal pain) Surgical History: noncontributory Social History Smoker: cigarettes Alcohol: none Drugs: marijuana Review of Systems Constitutional: denies chills, denies diaphoresis, denies fever, denies malaise Respiratory: denies cough, denies shortness of breath Cardiovascular: denies chest pain, denies palpitations, denies syncope Gastrointestinal: abdominal pain, denies constipation, denies diarrhea, nausea , vomiting Genitourinary: denies dysuria, denies frequency, denies hematuria Musculoskeletal: denies back pain, denies joint swelling, denies neck pain Psychiatric/Neurological: denies headache, denies numbness, denies paresthesia , denies weakness Physical Exam General Appearance: severe distress (crying complaining of abdominal pain) Ear, Nose, Throat: hearing grossly normal, normal ENT inspection, normal pharynx Neck: non-tender, supple Respiratory: normal breath sounds, no respiratory distress Cardiovascular: normal peripheral pulses, regular rate, rhythm Gastrointestinal: normal bowel sounds, non tender, soft, no organomegaly, other (no skin changes) Rectal: deferred Back: no vertebral tenderness, CVA tenderness (R) Extremities: non-tender, normal inspection 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 PATIENT: ARI LOPEZ ACCOUNT: [id number] : 1985 LOCATION: ER AGE: 31 SEX: M EXAM STATUS: REG ER ORD. PHYSICIAN: MANJU PAYNE DO REASON: abd pain, r/o pancreatitis drinking @ 8p PROCEDURE: CT ABD PELV W/ORAL&IV CONTRAST PQRS Compliance Statement: One or more of the following individualized dose reduction techniques were utilized for this examination: 1. Automated exposure control 2. Adjustment of the mA and/or kV according to patient size 3. Use of iterative reconstruction technique ABDOMEN/PELVIS CT WITH CONTRAST 08/04/2017. Reason For Study: Left upper quadrant abdominal pain with history of pancreatitis and renal calculi.. Comparison Studies: CT abdomen/pelvis January 17, 2017 Technique: Multiple axial images of the abdomen and pelvis were obtained following the intravenous administration of 75 mL Omnipaque 300. Oral contrast was also administered. Findings: The lung bases are unremarkable. The liver, spleen, pancreas, and adrenal glands are unremarkable. The gallbladder is present and contracted. There is a 3 mm nonobstructing calculus in the superior pole the left kidney. There is a 2 mm nonobstructing calculus in the superior pole the right kidney. Mild parenchymal thinning along the inferior aspect of the left kidney may represent sequela of prior infectious or vascular insult. No hydronephrosis. Appendix is normal in appearance.No bowel obstruction or dilatation. No ascites, lymphadenopathy, or free intraperitoneal air in the abdomen or pelvis. The bladder is unremarkable given degree of distention. There is no free fluid or enlarged lymph nodes in the pelvis. The course and caliber of the thoracoabdominal aorta is normal. There is a small right inguinal hernia containing fat. There are no suspicious osseous lesions. IMPRESSION: 1. No acute abnormality is identified in the abdomen and pelvis. 2. Bilateral nonobstructing nephrolithiasis. No hydronephrosis. Subtle parenchymal volume loss involving the lower pole of the left kidney may represent sequela of prior infectious or vascular insult. 3. Pancreas is normal in appearance. Electronically signed by: Karla Antonio MD (07/25/2017 10:07 PM) [facility] DICTATED AND SIGNED BY: KARLA ANTONIO MD DATE: 07/25/172202 CC: NON,STAFF; MANJU PAYNE DO ~ Labs reviewed with the patient, no acute emergent cause for his discomfort noted. He's been observed to be sleeping and resting comfortably at different times during a prolonged ED course due to radiology delay. When roused he continues to complain of severe pain without any relief. I discussed the findings with the patient, I discussed prescription and [id number] medications as well as PCP follow-up. The reported history is not consistent with obbjective ED findings and drug-seeking behavior is not ruled out. The patient advised his RN that he was allergic to [id number] Tylenol but not allergic to "prescription Tylenol that's a lot stronger." The patient's questions were answered and he expressed understanding of the treatment plan. He was advised to discontinue substance abuse. Departure Time of Disposition: :17 Disposition: 01 HOME, SELF-CARE Diagnosis: abdominal pain, history of pancreatitis Condition: GOOD Patient Instructions: Abdominal Pain (Nonspecific) Additional Instructions: Your amylase was slightly elevated and CT evaluation revealed no acute findings. No driving or operating machinery while sedated with medications. Clear liquids tonight, advance diet slowly tomorrow as tolerated. Prescription: Dicyclomine, Zofran ODT Follow-up with your doctor on Sunday for recheck. Return to ED with new or changing symptoms. MANJU PAYNE DO Jul 25, 2017 22:13
[2017-07-25] MEDS ORDERED: ONDA4TAB10 PO (22:15)
[2017-07-25] MEDS ORDERED: DICY20TA3 PO (22:15)
[2017-07-25 22:16] VITALS: BP 154/98
[2017-07-25] MEDS ORDERED: ONDANSETRON 4MG ODT 4TABLET STARTPACK. PO ONE (22:30)
[2017-07-25] MEDS ORDERED: DICYCLOMINE HCL 20 MG TABLET PO ONE (22:30)
== END 2017-07-25 22:32 | disposition home or self-care (01) ==
LOC: ER 18:03
DX: G89.29 Other chronic pain (principal); R10.13 Epigastric pain; R11.2 Nausea with vomiting, unspecified; F17.210 Nicotine dependence, cigarettes, uncomplicated; F12.10 Cannabis abuse, uncomplicated; Z88.0 Allergy status to penicillin; Z88.6 Allergy status to analgesic agent; Z88.5 Allergy status to narcotic agent
CPT/HCPCS: 36415; 74177; 80053; 80307; 81001; 82150; 82550; 83605; 83690; 84484; 85025; 96361; 96374; 96375; 99285; G0480; J1885; J2405; J3010; Q0162; Q9966; Q9967; G0479; J7030

== ENCOUNTER 2017-08-26 02:01 | Emergency (ER) | payer SELFPAY ==
[~2017-08-26] VITALS: Ht 180.3 cm; Wt 65.8 kg
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
[2017-08-26 02:07] VITALS: BP 155/100
[2017-08-26] MEDS ORDERED: FAMOTIDINE 20 MG/2 ML VIAL IVP ONE (03:00)
[2017-08-26] MEDS ORDERED: IV NORMAL SALINE 1,000ML 1,000 ML IV SCH (03:00)
[2017-08-26] MEDS ORDERED: ONDANSETRON PF 4 MG/2 ML VIAL. IV ONE (03:00)
[2017-08-26 03:22] LABS: BACTERIA,URINE 0 /HPF (0-FEW); BILIRUBIN,URINE NEG (NEG); CLARITY,URINE HAZY; COLOR,URINE YELLOW; GLUCOSE,URINE NEG (NEG); NITRITE,URINE NEG (NEG); SQUAMOUS EPITHELIAL CELL,UR OCC /LPF; UROBILINOGEN,URINE 0.2 mg/dL (0.2 mg/dL); WBC,URINE 0 /HPF (0-4)
[2017-08-26 03:28] LABS: ALBUMIN 4.2 g/dL (3.4-5.0); BARBITURATES NEG (NEG); BENZODIAZEPINES NEG (NEG); CALCIUM 9.2 mg/dL (8.5-10.1); CANNABINOIDS POS (NEG); COCAINE NEG (NEG); CREATININE 1.1 mg/dL (0.7-1.3); DIRECT BILIRUBIN 0.2 mg/dL (0.0-0.2); GFR 78.1; METHADONE NEG (NEG); OPIATES POS (NEG); PHENCYCLIDINE NEG (NEG); POTASSIUM 3.9 mmol/L (3.5-5.1); TOTAL BILIRUBIN 1.1 mg/dL (0.2-1.0); TOTAL PROTEIN 7.6 g/dL (6.4-8.2)
[2017-08-26] MEDS ORDERED: IOHEXOL 300 MG/ML 75 ML VIAL. IV ONE (03:30)
[2017-08-26] MEDS ORDERED: CONTRAST GIVEN MC PRN (03:30)
[2017-08-26 03:34] LABS: AMPHETAMINE/METHAMPHETAMINE POS (NEG)
[2017-08-26 04:30] LABS: BASO % 1 % (0-3); EOS # 0.1 x10^3/uL (0.0-0.7); EOS % 1 % (0-3); HEMATOCRIT 40.6 % (39.0-53.0); HEMOGLOBIN 13.9 g/dL (13.0-17.5); LYMPH # 3.1 x10^3/uL (1.0-4.8); LYMPH % 40 % (24-48); MEAN CORPUSCULAR HEMOGLOBIN 31 pg (25-35); MEAN CORPUSCULAR HGB CONC 34 g/dL (31-37); MEAN CORPUSCULAR VOLUME 91 fL (79-100); MONO # 0.5 x10^3/uL (0.0-1.1); MONO % 7 % (0-9); NEUT # 3.9 x10^3uL (1.8-7.7); NEUT % 51 % (31-73); PLATELET COUNT 222 x10^3/uL (140-400); RED BLOOD COUNT 4.45 x10^6/uL (4.30-5.70); RED CELL DISTRIBUTION WIDTH 12.9 % (11.5-14.5); WHITE BLOOD COUNT 7.7 x10^3/uL (4.0-11.0)
--- NOTE | 2017-08-26 04:52 | EKG ---
[address] [address] Test Date: 2017-08-26 Test Time: 04:49:14 Pat Name: ARI LOPEZ Department: Room: Gender: M Director Drug Safety: KAREN : 1985 Requested By: JUSTINA ZAPATA Order Number: [id number] Reading MD: Juan Salgado MD Measurements Intervals [place] Rate: 70 P: 58 [place]: 158 QRS: 60 QRSD: 98 T: 47 QT: 390 QTc: 424 Interpretive Statements SINUS RHYTHM PEAKED T-WAVES - CORRELATE CLINICALLY Electronically Signed On 09-03-2017 0:02:51 CHEMICAL ETCHING PROCESSOR by Juan Salgado MD
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
== END 2017-08-26 06:05 ==
LOC: ER 02:01
DX: S40.011A Contusion of right shoulder, initial encounter (principal); S80.01XA Contusion of right knee, initial encounter; M54.6 Pain in thoracic spine; R10.9 Unspecified abdominal pain; F19.10 Other psychoactive substance abuse, uncomplicated; G89.29 Other chronic pain; Z76.5 Malingerer [conscious simulation]; F17.210 Nicotine dependence, cigarettes, uncomplicated; F12.10 Cannabis abuse, uncomplicated; Z88.0 Allergy status to penicillin; Z88.1 Allergy status to other antibiotic agents; Z88.6 Allergy status to analgesic agent; Z88.5 Allergy status to narcotic agent; V09.9XXA Pedestrian injured in unspecified transport accident, initial encounter; Y93.89 Activity, other specified; Y99.8 Other external cause status; Y92.89 Other specified places as the place of occurrence of the external cause
CPT/HCPCS: 36415; 70450; 71046; 71250; 71260; 72125; 72131; 73564; 74177; 80048; 80076; 80307; 81001; 82150; 82553; 83605; 83690; 85025; 85610; 85730; 93005; 96361; 96374; 96375; 99285; G0480; J2405; J3010; Q9967; S0028; G0479; J7030

== ENCOUNTER 2017-12-02 19:23 | Emergency (ER) | payer SELFPAY ==
[~2017-12-02] VITALS: Ht 177.8 cm; Wt 70.3 kg
[2017-12-02 19:25] VITALS: BP 143/98
--- NOTE | 2017-12-02 19:49 | ED.ADGEN ---
Past History Past Medical History: Other Past Surgical History: Other Smoking: Cigarettes Alcohol Use: Sober Drug Use: Marijuana Adult General Chief Complaint Chief Complaint " This Lt hand been hurting since I got it caught moving book cases.." HPI HPI Patient is a 32 year old male who presents with Lt hand injury while moving bookcase. Pt. states hand got crush type injury. Injury occurred two days ago. Pt. has ROM, with discomfort. Distal neurovascular intact. Pt. is Rt. hand dominate. Review of Systems Review of Systems Constitutional: Denies fever or chills [] Eyes: Denies change in visual acuity, redness, or eye pain [] HENT: Denies nasal congestion or sore throat [] Respiratory: Denies cough or shortness of breath [] Cardiovascular: No additional information not addressed in HPI [] GI: Denies abdominal pain, nausea, vomiting, bloody stools or diarrhea [] : Denies dysuria or hematuria [] Musculoskeletal: Denies back pain or joint pain []. Complaints right hand pain as per history of present illness. Integument: Denies rash or skin lesions [] Neurologic: Denies headache, focal weakness or sensory changes [] Endocrine: Denies polyuria or polydipsia [] All other systems were reviewed and found to be within normal limits, except as documented in this note. Family History Family History Noncontributory Current Medications Current Medications See nursing for home meds Allergies Allergies Allergies Coded Allergies Type Severity Reaction Last Updated Verified Penicillins Allergy Intermediate 07/01/16 Yes amoxicillin Allergy Intermediate 07/01/16 Yes tramadol Allergy Intermediate 07/01/16 Yes acetaminophen Allergy Mild 07/01/16 Yes clavulanic acid Allergy Unknown 11/14/16 Yes morphine Allergy Unknown 07/25/17 Yes Physical Exam Physical Exam Constitutional: no acute distress, non-toxic appearance. [] HENT: Normocephalic, atraumatic, bilateral external ears normal, oropharynx moist, no oral exudates, nose normal. [] Eyes: PERRLA, EOMI, conjunctiva normal, no discharge. [] Neck: Normal range of motion, no tenderness, supple, no stridor. [] Cardiovascular:Heart rate regular rhythm, no murmur [] Lungs & Thorax: Bilateral breath sounds equal apex with scattered wheezes on auscultation [] Abdomen: Bowel sounds normal, soft, no tenderness, no masses, no pulsatile masses. [] Skin: Warm, dry, no erythema, no rash. [] Back: No tenderness, no CVA tenderness. [] Extremities: No tenderness, no cyanosis, no clubbing, ROM intact, no edema. [] Left hand exam as per history of present illness Neurologic: Alert and oriented X 3, normal motor function, normal sensory function, no focal deficits noted. [] Psychologic: Affect normal, judgement normal, mood normal. [] Current Patient Data Vital Signs Vital Signs Date Time Temp Pulse Resp B/P (MAP) Pulse Ox O2 Delivery O2 Flow Rate FiO2 12/02/17 19:25 97.8 81 20 99 Room Air EKG EKG [] Radiology/Procedures Radiology/Procedures My interpretation of left hand x-ray shows no obvious fracture or dislocation.[] Course & Med Decision Making Course & Med Decision Making Pertinent Labs and Imaging studies reviewed. (See chart for details). Feliberto splint. Ice, elevation, Tylenol and ibuprofen [id number]. Follow-up primary care. Encouraged patient to stop smoking. Return if any concerns. [] Final Impression Final Impression 1. Contusion[] Problems: Dragon Disclaimer Dragon Disclaimer This electronic medical record was generated, in whole or in part, using a voice recognition dictation system. JUSTINA ZAPATA MD Dec 02, 2017 19:49
[2017-12-02] MEDS ORDERED: HYDR-79 PO (20:49)
--- NOTE | 2017-12-03 07:44 | RAD ---
3 views left hand 12/02/2017 9:55 PM Indication: hand injury Comparison: None Findings: There is no fracture or dislocation identified. Articular surfaces are uninterrupted. Soft tissues are unremarkable. Impression: No evidence of acute osseous abnormality
== END 2017-12-02 20:59 | disposition home or self-care (01) ==
LOC: ER 19:23
DX: S60.222A Contusion of left hand, initial encounter (principal); F17.210 Nicotine dependence, cigarettes, uncomplicated; F12.10 Cannabis abuse, uncomplicated; Z88.0 Allergy status to penicillin; Z88.1 Allergy status to other antibiotic agents; Z88.5 Allergy status to narcotic agent; Z88.6 Allergy status to analgesic agent; X58.XXXA Exposure to other specified factors, initial encounter; Y93.89 Activity, other specified; Y99.8 Other external cause status; Y92.89 Other specified places as the place of occurrence of the external cause
CPT/HCPCS: 73130; 99284

== ENCOUNTER 2017-12-18 19:00 | Emergency (ER) | payer SELFPAY ==
[~2017-12-18] VITALS: Ht 177.8 cm; Wt 72.8 kg
[~2017-12-18 19:00] MED LIST changes: +RANI150T21 PO; -RANI150T6 PO
[2017-12-18 20:43] LABS: BASO % 1 % (0-3); EOS # 0.1 x10^3/uL (0.0-0.7); EOS % 1 % (0-3); HEMATOCRIT 44.7 % (39.0-53.0); HEMOGLOBIN 15.6 g/dL (13.0-17.5); LYMPH # 2.5 x10^3/uL (1.0-4.8); LYMPH % 37 % (24-48); MEAN CORPUSCULAR HEMOGLOBIN 32 pg (25-35); MEAN CORPUSCULAR HGB CONC 35 g/dL (31-37); MEAN CORPUSCULAR VOLUME 92 fL (79-100); MONO # 0.4 x10^3/uL (0.0-1.1); MONO % 6 % (0-9); NEUT # 3.7 x10^3uL (1.8-7.7); NEUT % 55 % (31-73); PLATELET COUNT 217 x10^3/uL (140-400); RED BLOOD COUNT 4.84 x10^6/uL (4.30-5.70); RED CELL DISTRIBUTION WIDTH 13.3 % (11.5-14.5); WHITE BLOOD COUNT 6.8 x10^3/uL (4.0-11.0)
[2017-12-18] MEDS ORDERED: IV NORMAL SALINE 1,000ML 1,000 ML IV SCH (20:45)
[2017-12-18] MEDS ORDERED: ONDANSETRON ODT 4 MG TAB.RAPDIS PO ONE (20:45)
[2017-12-18 20:50] LABS: ALBUMIN 4.1 g/dL (3.4-5.0); ALBUMIN/GLOBULIN RATIO 1.1 (1.0-1.7); CREATININE 1.4 mg/dL (0.7-1.3); GFR 58.7; POTASSIUM 4.4 mmol/L (3.5-5.1); TOTAL BILIRUBIN 0.5 mg/dL (0.2-1.0)
[2017-12-18] MEDS: HYDROmorphone PF 2 MG/ML VIAL IV/SQ PRN ×2 (20:50→22:09)
--- NOTE | 2017-12-18 21:00 | PHYS DOC ---
Past History Past Medical History: Pancreatitis, Other Past Surgical History: Other Smoking: Cigarettes Alcohol Use: Sober Drug Use: Marijuana Adult General Chief Complaint Chief Complaint: ABDOMINAL PAIN HPI HPI Patient is a 32 year old male who presents with complaint of abdominal pain. Patient states that he has history of chronic abdominal pain secondary to chronic pancreatitis. The patient does not currently follow with a primary doctor. Patient states his symptoms started getting worse today. Patient states that typically her worsened by eating and states that that seems to be the cause for today symptoms. Patient denies any vomiting or fever associated with symptoms. Patient rates pain currently is 10 out of 10. Patient states is localized in his upper abdomen. Patient states that he was recently seen in the emergency department within the last 2 weeks and have been prescribed Vicoprofen for treatment of a hand injury. Patient states he took his last tablet today. Patient states that he has not taken any other medications to try to help with symptoms. Review of Systems Review of Systems Constitutional: Denies fever or chills [] Eyes: Denies change in visual acuity, redness, or eye pain [] HENT: Denies nasal congestion or sore throat [] Respiratory: Denies cough or shortness of breath [] Cardiovascular: Denies chest pain or edema[] GI: Abdominal pain, nausea, denies vomiting, bloody stools or diarrhea [] : Denies dysuria or hematuria [] Musculoskeletal: Denies back pain or joint pain [] Integument: Denies rash or skin lesions [] Neurologic: Denies headache, focal weakness or sensory changes [] All other systems were reviewed and found to be within normal limits, except as documented in this note. Current Medications Current Medications Current Medications Medications (Trade) Dose Ordered Sig/Gene Start Time Stop Time Status Last Admin Dose Admin Hydromorphone HCl (Dilaudid) 1 mg PRN Q15MIN PRN 12/18/17 20:45 12/18/17 20:50 1 MG Ondansetron HCl (Zofran Odt) 4 mg 1X ONCE 12/18/17 20:45 12/18/17 20:46 DC 12/18/17 20:47 4 MG Sodium Chloride 1,000 ml @ 1,000 mls/hr Q1H 12/18/17 20:45 12/18/17 21:44 12/18/17 20:47 1,000 MLS/HR Allergies Allergies Allergies Coded Allergies Type Severity Reaction Last Updated Verified Penicillins Allergy Intermediate 07/01/16 Yes amoxicillin Allergy Intermediate 07/01/16 Yes tramadol Allergy Intermediate 07/01/16 Yes acetaminophen Allergy Mild 07/01/16 Yes clavulanic acid Allergy Unknown 11/14/16 Yes ketorolac Allergy Unknown 12/18/17 Yes morphine Allergy Unknown 07/25/17 Yes ibuprofen Adverse Reaction Intermediate 12/18/17 Yes Physical Exam Physical Exam Constitutional: Alert, afebrile, appears in moderate discomfort. [] HENT: Normocephalic, atraumatic, bilateral external ears normal, oropharynx moist, no oral exudates, nose normal. [] Eyes: PERRLA, EOMI, conjunctiva normal, no discharge. [] Neck: Normal range of motion, no tenderness, supple, no stridor. [] Cardiovascular:Heart rate regular rhythm, no murmur [] Lungs & Thorax: Bilateral breath sounds clear to auscultation [] Abdomen: Bowel sounds normal, soft, epigastric tenderness to palpation with mild guarding, no rebound tenderness, no masses, no pulsatile masses. [] Skin: Warm, dry, no erythema, no rash. [] Back: No tenderness, no CVA tenderness. [] Extremities: No tenderness, no cyanosis, no clubbing, ROM intact, no edema. [] Neurologic: Alert and oriented X 3, normal motor function, normal sensory function, no focal deficits noted. [] Current Patient Data Vital Signs Vital Signs Date Time Temp Pulse Resp B/P (MAP) Pulse Ox O2 Delivery O2 Flow Rate FiO2 12/18/17 20:50 16 97 12/18/17 19:00 97.9 87 Room Air Lab Results Laboratory Tests Test 12/18/17 19:58 White Blood Count 6.8 x10^3/uL (4.0-11.0) Red Blood Count 4.84 x10^6/uL (4.30-5.70) Hemoglobin 15.6 g/dL (13.0-17.5) Hematocrit 44.7 % (39.0-53.0) Mean Corpuscular Volume 92 fL (79-100) Mean Corpuscular Hemoglobin 32 pg (25-35) Mean Corpuscular Hemoglobin Concent 35 g/dL (31-37) Red Cell Distribution Width 13.3 % (11.5-14.5) Platelet Count 217 x10^3/uL (140-400) Neutrophils (%) (Auto) 55 % (31-73) Lymphocytes (%) (Auto) 37 % (24-48) Monocytes (%) (Auto) 6 % (0-9) Eosinophils (%) (Auto) 1 % (0-3) Basophils (%) (Auto) 1 % (0-3) Neutrophils # (Auto) 3.7 x10^3uL (1.8-7.7) Lymphocytes # (Auto) 2.5 x10^3/uL (1.0-4.8) Monocytes # (Auto) 0.4 x10^3/uL (0.0-1.1) Eosinophils # (Auto) 0.1 x10^3/uL (0.0-0.7) Basophils # (Auto) 0.0 x10^3/uL (0.0-0.2) Sodium Level 142 mmol/L (136-145) Potassium Level 4.4 mmol/L (3.5-5.1) Chloride Level 103 mmol/L (98-107) Carbon Dioxide Level 29 mmol/L (21-32) Anion Gap 10 (6-14) Blood Urea Nitrogen 18 mg/dL (8-26) Creatinine 1.4 mg/dL (0.7-1.3) H Estimated GFR (Cockcroft-Gault) 58.7 BUN/Creatinine Ratio 13 (6-20) Glucose Level 92 mg/dL (70-99) Calcium Level 9.0 mg/dL (8.5-10.1) Total Bilirubin 0.5 mg/dL (0.2-1.0) Aspartate Amino Transferase (AST) 19 U/L (15-37) Alanine Aminotransferase (ALT) 23 U/L (16-63) Alkaline Phosphatase 76 U/L (46-116) Total Protein 8.0 g/dL (6.4-8.2) Albumin 4.1 g/dL (3.4-5.0) Albumin/Globulin Ratio 1.1 (1.0-1.7) Lipase 178 U/L (73-393) EKG EKG Not performed[] Radiology/Procedures Radiology/Procedures [address] [address] IMAGING REPORT Signed PATIENT: ARI LOPEZ ACCOUNT: [id number] : 1985 LOCATION: ER AGE: 32 SEX: M EXAM STATUS: REG ER ORD. PHYSICIAN: JOSE CABRAL MD REASON: abdominal pain PROCEDURE: ACUTE ABDOMEN SERIES EXAM: Abdomen acute complete. HISTORY: Pain. COMPARISON: 08/26/2017 FINDINGS: A frontal view of the chest and frontal upright and supine views of the abdomen are obtained. There is no infiltrate, effusion or pneumothorax. The heart is normal in size. There is gas and stool within the colon. No abnormally dilated air-filled loop of bowel seen. There is no free air. There is a transitional lumbosacral segment, consistent with a partially lumbarized S1 segment or sacralized L6 segment based on the number of paired ribs and nonrib-bearing lumbar segments. 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 IMPRESSION: 1. No acute pulmonary finding. 2. Nonobstructive bowel gas pattern. Electronically signed by: Sue Caceres MD (12/18/2017 9:22 PM) [facility] DICTATED AND SIGNED BY: SUE CACERES MD DATE: 12/18/172119 CC: JOSE CABRAL MD; PCP,NO ~ [] Course & Med Decision Making Course & Med Decision Making Pertinent Labs and Imaging studies reviewed. (See chart for details) Patient's blood work and x-rays appear unremarkable. Patient was treated with IV Dilaudid with good control of pain symptoms in the emergency department. Given the chronic nature of patient's abdominal pain, I explained to the patient I would not be able to write for any further narcotic pain med prescriptions until patient is able to establish follow-up with primary care. Patient was referred to local area clinics establish primary care. Advised return emergency department for any worsening symptoms. Patient voiced understanding and in agreement with treatment plan. Dragon Disclaimer Dragon Disclaimer This electronic medical record was generated, in whole or in part, using a voice recognition dictation system. Departure Departure: Impression: Primary Impression: Chronic abdominal pain Disposition: HOME, SELF-CARE Condition: IMPROVED Referrals: PCP,NO (PCP) Patient Instructions: Abdominal Pain (Nonspecific) Additional Instructions: Follow-up with a primary doctor in 1 week for reevaluation. Return to the emergency department for any worsening symptoms. JOSE CABRAL MD December 18, 2017 21:00
--- NOTE | 2017-12-18 21:25 | RAD ---
EXAM: Abdomen acute complete. HISTORY: Pain. COMPARISON: 08/26/2017 FINDINGS: A frontal view of the chest and frontal upright and supine views of the abdomen are obtained. There is no infiltrate, effusion or pneumothorax. The heart is normal in size. There is gas and stool within the colon. No abnormally dilated air-filled loop of bowel seen. There is no free air. There is a transitional lumbosacral segment, consistent with a partially lumbarized S1 segment or sacralized L6 segment based on the number of paired ribs and nonrib-bearing lumbar segments. 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 IMPRESSION: 1. No acute pulmonary finding. 2. Nonobstructive bowel gas pattern. Electronically signed by: Sue Caceres MD (12/18/2017 9:22 PM) [facility]
[2017-12-18 21:36] LABS: BILIRUBIN,URINE NEG (NEG); CLARITY,URINE CLEAR; COLOR,URINE YELLOW; GLUCOSE,URINE NEG (NEG); NITRITE,URINE NEG (NEG); UROBILINOGEN,URINE 0.2 mg/dL (0.2 mg/dL)
[2017-12-18 21:37] LABS: BACTERIA,URINE FEW /HPF (0-FEW); SQUAMOUS EPITHELIAL CELL,UR OCC /LPF; WBC,URINE OCC /HPF (0-4)
[2017-12-18] MEDS ORDERED: HYDROmorphone PF 2 MG/ML VIAL IV ONE (22:00)
[2017-12-18 22:09] VITALS: BP 139/87
== END 2017-12-18 22:13 | disposition home or self-care (01) ==
LOC: ER 19:00
DX: G89.29 Other chronic pain (principal); R10.13 Epigastric pain; F17.210 Nicotine dependence, cigarettes, uncomplicated; F12.10 Cannabis abuse, uncomplicated; Z88.0 Allergy status to penicillin; Z88.1 Allergy status to other antibiotic agents; Z88.6 Allergy status to analgesic agent; Z88.5 Allergy status to narcotic agent; Z88.8 Allergy status to other drugs, medicaments and biological substances
CPT/HCPCS: 36415; 74022; 80053; 81001; 83690; 85025; 96372; 99285; J1170; Q0162; J7030

== ENCOUNTER 2018-01-21 18:18 | Emergency (ER) | payer OTHER ==
[~2018-01-21] VITALS: Ht 177.8 cm; Wt 71.7 kg
--- NOTE | 2018-01-21 18:22 | ED.ADGEN ---
Past History Past Medical History: Pancreatitis, Other Past Surgical History: Other Smoking: Cigarettes Alcohol Use: Sober Drug Use: Marijuana Adult General Chief Complaint Chief Complaint ... " I was putting stuff in my mom storage area... and a bunch of stuff fell off the shelf... and hit me in the back of head.. and neck.. it was not too bad at lst.. but now I am so stiff I can't turn my neck...." HPI HPI Patient is a 32 year old male who presents with above hx and complaints of neck pain. Patient localizes pain along mid cervical column approximately T4 down to T1. Patient has spasms of trapezius bilaterally. Patient's range of motion limited because of muscle spasms. [employer] equal. DTRs equal at patella and brachial. No drift. Patient denies any history of immunosuppression. Patient denies any IV drug use. Patient denies any history of fevers. Patient denies any history cancer. Patient does smoke heavily. Review of Systems Review of Systems Constitutional: Denies fever or chills [] Eyes: Denies change in visual acuity, redness, or eye pain [] HENT: Denies nasal congestion or sore throat []complains of neck pain Respiratory: Denies cough or shortness of breath [] Cardiovascular: No additional information not addressed in HPI [] GI: Denies abdominal pain, nausea, vomiting, bloody stools or diarrhea [] : Denies dysuria or hematuria [] Musculoskeletal: Denies back pain or joint pain [] Integument: Denies rash or skin lesions [] Neurologic: Denies headache, focal weakness or sensory changes [] Endocrine: Denies polyuria or polydipsia [] All other systems were reviewed and found to be within normal limits, except as documented in this note. Family History Family History Noncontributory Current Medications Current Medications Current Medications Medications (Trade) Dose Ordered Sig/Gene Start Time Stop Time Status Last Admin Dose Admin Diphenhydramine HCl (Benadryl) 50 mg 1X ONCE 01/21/18 19:00 01/21/18 19:01 DC 01/21/18 19:12 50 MG Fentanyl Citrate (Fentanyl 2ml Vial) 50 mcg 1X ONCE 01/21/18 19:00 01/21/18 19:01 DC 01/21/18 19:23 50 MCG Lorazepam (Ativan) 2 mg 1X ONCE 6/18/18 19:00 01/21/18 19:01 DC 01/21/18 19:22 2 MG Methylprednisolone Acetate (DEPO-Medrol IM) 40 mg 1X ONCE 01/21/18 19:00 01/21/18 19:01 DC 01/21/18 19:10 40 MG Orphenadrine Citrate (Norflex) 60 mg 1X ONCE 01/21/18 19:00 01/21/18 19:01 DC 01/21/18 19:21 60 MG Allergies Allergies Allergies Coded Allergies Type Severity Reaction Last Updated Verified Penicillins Allergy Intermediate 07/01/16 Yes amoxicillin Allergy Intermediate 07/01/16 Yes tramadol Allergy Intermediate 07/01/16 Yes clavulanic acid Allergy Unknown 11/14/16 Yes ketorolac Allergy Unknown 12/18/17 Yes morphine Allergy Unknown 07/25/17 Yes ibuprofen Adverse Reaction Intermediate 12/18/17 Yes Physical Exam Physical Exam Constitutional: Moderately acute distress, non-toxic appearance. [] HENT: Normocephalic, atraumatic, bilateral external ears normal, oropharynx moist, no oral exudates, nose normal. [] Eyes: PERRLA, EOMI, conjunctiva normal, no discharge. [] Neck: Limited range of motion, trapezius tenderness,, no stridor. [] Exam as per history of present illness Cardiovascular:Heart rate regular rhythm, no murmur [] Lungs & Thorax: Bilateral breath sounds equal with scattered wheezes auscultation [] Abdomen: Bowel sounds normal, soft, no tenderness, no masses, no pulsatile masses. [] Skin: Warm, dry, no erythema, no rash. [] Back: No tenderness, no CVA tenderness. [] Extremities: No tenderness, no cyanosis, no clubbing, ROM intact, no edema. [] Neurologic: Alert and oriented X 3, normal motor function, normal sensory function, no focal deficits noted. []DTRs +2 patella and brachial. [employer] equal. No Distal sensation loss. Psychologic: Affect anxious, judgement normal, mood normal. [] Current Patient Data Vital Signs Vital Signs Date Time Temp Pulse Resp B/P (MAP) Pulse Ox O2 Delivery O2 Flow Rate FiO2 01/21/18 19:45 98 16 164/100 (121) 98 Room Air 01/21/18 18:24 97.8 EKG EKG [] Radiology/Procedures Radiology/Procedures CT shows no acute fx. or dislocation. Bullous emphysema- See formal report when available [] Course & Med Decision Making Course & Med Decision Making Pertinent Labs and Imaging studies reviewed. (See chart for details). Use ice packs as needed. Gentle massage. May take Flexeril 5 mg up to 3 times a day for muscle spasms. Follow-up primary care. [] Final Impression Final Impression 1. Neck Pain 2. Muscle spasms[]-cervical torticollis 3. Bullous emphysema 4. Tobacco use Dragon Disclaimer Dragon Disclaimer This electronic medical record was generated, in whole or in part, using a voice recognition dictation system. JUSTINA ZAPATA MD Jan 21, 2018 18:22
[2018-01-21] MEDS ORDERED: CYCL5TAB PO (18:53)
[2018-01-21] MEDS ORDERED: methylPREDNISolone ACETATE 40 MG/ML VIAL. IM ONE (19:00)
[2018-01-21] MEDS ORDERED: ORPHENADRINE CITRATE 60 MG/2 ML VIAL. IM ONE (19:00)
[2018-01-21] MEDS ORDERED: diphenhydrAMINE 50 MG/ML VIAL IM ONE (19:00)
[2018-01-21] MEDS ORDERED: LORazepam 2 MG/ML VIAL IM ONE (19:00)
--- NOTE | 2018-01-21 19:25 | RAD ---
CT scan of the cervical spine without contrast 01/21/2018 Clinical history: Severe neck pain after container fell on his neck earlier today. Technique: Unenhanced, contiguous, 0.625 mm axial sections were obtained through the cervical spine. Axial, coronal and sagittal reconstructed images were obtained. One or more of the following individualized dose reduction techniques were utilized for this study: 1. Automated exposure control. 2. Adjustment of the mA and/or kV according to patient size. 3. Use of iterative reconstruction technique. Findings: Sagittal and coronal reconstructed images demonstrate mild lateral curvature of the cervical spine, convex to the left No fracture or subluxation of the cervical vertebrae is seen. Mild bullous emphysematous changes are seen involving the apices of both lungs. Impression: No fracture or subluxation of the cervical vertebra is identified. Electronically signed by: Tio Miller MD (01/21/2018 7:21 PM) [facility]
[2018-01-21 19:45] VITALS: BP 164/100
== END 2018-01-21 19:52 | disposition home or self-care (01) ==
LOC: ER 18:18
DX: M43.6 Torticollis (principal); J43.8 Other emphysema; F17.210 Nicotine dependence, cigarettes, uncomplicated; Z88.0 Allergy status to penicillin; Z88.1 Allergy status to other antibiotic agents; Z88.6 Allergy status to analgesic agent; Z88.5 Allergy status to narcotic agent; Z88.8 Allergy status to other drugs, medicaments and biological substances
CPT/HCPCS: 72125; 96372; 99284; J1030; J1200; J2060; J2360; J3010

== ENCOUNTER → 2018-01-22 | Outpatient (CLI) | payer OTHER ==
[2018-01-21 19:45] VITALS: BP 164/100
[~2018-01-22] MED LIST changes: +CYCL5TAB PO
--- NOTE | 2018-01-23 07:58 | RAD ---
Lumbar spine with lateral flexion and extension views, 5 views, 01/22/2018: HISTORY: Low back pain, skateboarding injury No acute fracture or subluxation is identified. There is a small accessory rib on the right at L1. The intervertebral disc spaces are well-maintained. No significant instability is seen with flexion and extension. The paraspinous soft tissues are unremarkable. IMPRESSION: No significant lumbar spine abnormality is detected. Electronically signed by: Minh Obregon MD (01/23/2018 7:54 AM) [facility]
== END | disposition home or self-care (01) ==
LOC: RAD 21:46
PROVIDERS: ATTEND Family Medicine
DX: M54.5 Low back pain (principal)
CPT/HCPCS: 72110

== ENCOUNTER → 2019-01-16 | Outpatient (CLI) | payer OTHER ==
[~2019-01-16] MED LIST changes: +ALBU2.5V8 INH; -ALBU8.5H8 INH; +HYDR-1179 PO; -HYDR-79 PO; +RANI-376 PO; -RANI150T21 PO
[2019-01-16 21:22] LABS: ALBUMIN 3.1 g/dL (3.4-5.0); ALBUMIN/GLOBULIN RATIO 1.1 (1.0-1.7); CALCIUM 7.1 mg/dL (8.5-10.1); GFR 86.1; POTASSIUM 3.5 mmol/L (3.5-5.1); TOTAL BILIRUBIN 0.2 mg/dL (0.2-1.0); TOTAL PROTEIN 5.9 g/dL (6.4-8.2)
[2019-01-16 21:46] LABS: BASO % 1 % (0-3); EOS # 0.2 x10^3/uL (0.0-0.7); EOS % 3 % (0-3); HEMATOCRIT 41.7 % (39.0-53.0); HEMOGLOBIN 14.2 g/dL (13.0-17.5); LYMPH # 2.2 x10^3/uL (1.0-4.8); LYMPH % 36 % (24-48); MEAN CORPUSCULAR HEMOGLOBIN 31 pg (25-35); MEAN CORPUSCULAR HGB CONC 34 g/dL (31-37); MEAN CORPUSCULAR VOLUME 91 fL (79-100); MONO # 0.5 x10^3/uL (0.0-1.1); MONO % 7 % (0-9); NEUT # 3.3 x10^3uL (1.8-7.7); NEUT % 54 % (31-73); PLATELET COUNT 215 x10^3/uL (140-400); RED BLOOD COUNT 4.57 x10^6/uL (4.30-5.70); RED CELL DISTRIBUTION WIDTH 13.3 % (11.5-14.5); WHITE BLOOD COUNT 6.2 x10^3/uL (4.0-11.0)
[2019-01-16 22:51] LABS: % BASOS 2 % (0-3); % EOS 2 % (0-5); % LYMPHS 35 % (24-48); % MONOS 7 % (0-10); % SEGS 54 % (35-66)
[2019-01-16 22:53] LABS: ANISOCYTOSIS SLIGHT; PLT ESTIMATE ADEQUATE (ADEQUATE); POLYCHROMASIA SLIGHT; SCHISTOCYTES OCC; SEDIMENTATION RATE 5 (0-15)
== END | disposition home or self-care (01) ==
LOC: SPEC 17:31 → EEVIPCON 17:31
PROVIDERS: ATTEND Family Medicine
DX: K85.90 Acute pancreatitis without necrosis or infection, unspecified (principal)
CPT/HCPCS: 36415; 80053; 83690; 85007; 85025; 85651; 86140